=== PATIENT | female | born 1955 | race Caucasian/White ===

== ENCOUNTER → 2018-12-17 09:56 | Outpatient (CLI) | payer OTHER, SELFPAY ==
--- NOTE | 2018-12-17 | DI.MG.S_ITS ---
BILATERAL DIGITAL SCREENING MAMMOGRAM 3D/2D WITH CAD: 12/17/2018 CLINICAL: Routine screening. Comparison is made to exams dated: 05/01/2017 mammogram, 04/10/2016 mammogram, and 03/25/2015 mammogram - [facility]. The tissue of both breasts is heterogeneously dense. This may lower the sensitivity of mammography. Current study was also evaluated with a Computer Aided Detection (CAD) system. There are benign calcifications in both breasts. There are mole markers on both breasts. No significant masses, calcifications, or other findings are seen in either breast. There has been no significant interval change. IMPRESSION: There is no mammographic evidence of malignancy. A 1 year screening mammogram is recommended. This exam was interpreted at Station ID: [id number]. NOTE: For mammograms, a report in lay terms will be sent to the patient. Approximately 15% of breast malignancies will not be visualized mammographically. In the management of a palpable breast mass, a negative mammogram must not discourage biopsy of a clinically suspicious lesion. Electronically Signed By: Wilmer corado/pencortez:12/17/2018 12:23:24 copy to: RACHEL TOURE M.D. letter sent: Normal Exam ACR BI-RADS Category 2: Benign Finding(s) [id number]
== END ==
PROVIDERS: PCP Family Medicine; Visit Provider Family Medicine
DX: Z12.31 Encounter for screening mammogram for malignant neoplasm of breast (principal)
CPT/HCPCS: 77063; 77067

== ENCOUNTER → 2019-01-10 07:48 | Outpatient (CLI) | payer OTHER, SELFPAY | PROVIDERS: PCP Family Medicine; Visit Provider Family Medicine | DX: E78.5 Hyperlipidemia, unspecified (principal); E06.3 Autoimmune thyroiditis ==

== ENCOUNTER → 2019-01-14 07:52 | Outpatient (CLI) | payer OTHER, SELFPAY ==
[2019-01-14 09:09] LABS: Add Manual Diff / Slide Review NO; Basophils Absolute Auto 0 /uL (0-100); Basophils Percent Auto 0.5 % (0-2); Eosinophils Absolute Auto 100 /uL (0-450); Eosinophils Percent Auto 2.3 % (2-4); Hematocrit 38.8 % (36-46); Hemoglobin 13.2 g/dL (12.0-16.0); Lymphocytes Absolute Auto 1900 /uL (1100-4500); Lymphocytes Percent Auto 40.6 % (25-40); Mean Corpuscular Hemoglobin 32.2 PG (26-34); Mean Corpuscular Volume 94.5 fL (80-100); Monocytes Absolute Auto 300 /uL (0-900); Monocytes Percent Auto 5.9 % (3-14); Neutrophils Absolute Auto 2400 /uL (1500-7000); Neutrophils Percent Auto 50.7 % (50-75); Platelet Count 226 X10^3/uL (150-400); Red Blood Cell Count 4.11 X10^6/uL (4.0-5.2); Red Cell Distribution Width 13.4 % (11.6-14.8); White Blood Cell Count 4.7 X10^3/uL (4.5-11.0)
[2019-01-14 09:58] LABS: Alanine Aminotransferase 16 IU/L (9-52); Albumin 4.4 g/dL (3.5-5.0); Albumin Globulin Ratio 1.6 (1.0-2.8); Alkaline Phosphatase 74 U/L (38-126); Aspartate Aminotransferase 18 IU/L (14-36); BUN Creatinine Ratio 21.4 (6-22); Bilirubin Total 0.5 mg/dL (0.2-1.3); Blood Urea Nitrogen 15 mg/dL (7-17); Calcium 9.7 mg/dL (8.4-10.2); Carbon Dioxide 29 mmol/L (22-32); Chloride 102 mmol/L (98-107); Cholesterol 222 mg/dL (140-199); Estimated Glomerular Filt Rate > 60.0 mL/min (>60); Globulin 2.8 g/dL (1.7-4.1); Glucose 96 mg/dL (80-110); HDL Cholesterol 57 mg/dL (40-60); HEMOLYSIS < 15 (0-50); LDL Cholesterol Calculated 133 mg/dL (<100); Potassium 4.1 mmol/L (3.4-5.1); Sodium 140 mmol/L (137-145); Total Protein 7.2 g/dL (6.3-8.2); Triglycerides 161 mg/dL (35-150)
[2019-01-14 10:23] LABS: Thyroid Stimulating Hormone 2.24 uIU/mL (0.47-4.68)
== END ==
PROVIDERS: PCP Family Medicine; Visit Provider Family Medicine
DX: E78.5 Hyperlipidemia, unspecified (principal); E06.3 Autoimmune thyroiditis
CPT/HCPCS: 36415; 80053; 80061; 84443; 85025

== ENCOUNTER → 2020-02-26 10:54 | Outpatient (CLI) | payer OTHER, SELFPAY ==
[2020-02-27 13:16] LABS: Fecal Immunochemical Test Negative (Negative)
== END ==
PROVIDERS: PCP Family Medicine; Referring Provider Family Medicine; Visit Provider Family Medicine
DX: Z12.11 Encounter for screening for malignant neoplasm of colon (principal)
CPT/HCPCS: 82274

== ENCOUNTER → 2020-06-29 09:41 | Outpatient (CLI) | payer OTHER, SELFPAY ==
--- NOTE | 2020-06-29 | DI.MRI.S_ITS ---
PROCEDURE: MR KNEE RT WO CON INDICATIONS: PAIN IN RIGHT KNEE TECHNIQUE: Noncontrast sagittal PD fast spin echo and T2 fast spin echo with fat saturation, sagittal 3-D FLASH with fat saturation; coronal T1 spin echo and PD fast spin echo with fat saturation, and axial PD fast spin echo with fat saturation through the knee. COMPARISON: None. FINDINGS: Image quality: Excellent. Menisci: There is no peripheral displacement of medial meniscus bowing medial collateral ligament. No definite focal medial meniscal tear is seen. There is no evidence of focal lateral meniscal tear. The meniscal root ligaments appear intact. Cruciate ligaments: The anterior and posterior cruciate ligaments appear intact. Medial structures: Low to moderate grade MCL sprain/partial-thickness tear is noted. The posterior oblique ligament, semimembranosus tendon insertions, oblique popliteal ligament, and meniscocapsular junction appear intact. Visualized portions of the pes anserinus tendons appear normal. No abnormal bursal fluid. Lateral structures: The lateral collateral ligament, long and short heads of the biceps femoris tendon appear intact. The popliteus tendon appears normal; the popliteofibular ligament appears intact. The posterosuperior and anteroinferior popliteomeniscal fascicles appear intact. The arcuate and fabellofibular ligaments appear intact, on either side of the lateral inferior geniculate artery. Iliotibial band appears normal. Anterior structures: The quadriceps and patellar tendons appear intact. Patellar alignment is normal. No femoral trochlear dysplasia or ventral trochlear prominence. No edema in the infrapatellar fat pad. Bones and cartilage: No bone marrow contusions or fractures. Mild to moderate tricompartmental osteoarthritis and chondromalacia is seen most prominent in medial femoral tibial compartment with joint space narrowing, subchondral sclerosis and edema and marginal osteophyte formation. Joint space: There is moderate amount of joint fluid is noted. Septated popliteal cyst is seen measures 3 x 2.7 x 5.8 cm in size. Normal appearing synovial plicae are incidentally noted. IMPRESSION: 1. Mild to moderate tricompartmental osteoarthritis and chondromalacia most prominent in medial femoral tibial compartment. Moderate amount of joint fluid and popliteal cyst as above. 2. Degenerative changes involving posterior horn of medial meniscus with peripheral displacement of medial meniscus bowing medial collateral ligament. No definite focal medial meniscal tear. There is no evidence of focal lateral meniscal tear. 3. Low-grade MCL sprain. Cruciate ligaments are intact. Dictated by: Eleazar Mcdonald M.D. on 06/29/2020 at 10:52 Approved by: Eleazar Mcdonald M.D. on 06/29/2020 at 11:05
== END ==
PROVIDERS: PCP Family Medicine; Referring Provider Orthopaedic Surgery; Visit Provider Orthopaedic Surgery
DX: M25.561 Pain in right knee (principal); S83.411A Sprain of medial collateral ligament of right knee, initial encounter; M17.11 Unilateral primary osteoarthritis, right knee; M94.261 Chondromalacia, right knee; M71.21 Synovial cyst of popliteal space [Baker], right knee
CPT/HCPCS: 73721

== ENCOUNTER → 2020-07-07 16:23 | Outpatient (CLI) | payer OTHER, SELFPAY ==
[2020-07-07 16:42] LABS: Bacteria Urine None Seen
[2020-07-07 17:44] LABS: Appearance Urine UA CLEAR; Bilirubin Urine UA NEGATIVE (NEGATIVE); Color Urine UA YELLOW; Glucose Urine UA NEGATIVE (Negative); Ketones Urine UA NEGATIVE (NEGATIVE); Leukocyte Esterase Urine UA 1+ (NEGATIVE); Nitrite Urine UA NEGATIVE (Negative); Occult Blood Urine UA TRACE-INTACT (Negative); Protein Urine UA NEGATIVE (Negative); Specific Gravity Urine UA 1.015 (1.000-1.035); Urobilinogen Urine UA 0.2 E.U./dL (0.2)
[2020-07-07 17:52] LABS: pH Urine UA 6.5 (4.5-8.0)
[2020-07-07 17:56] LABS: Add Manual Diff / Slide Review NO; Basophils Absolute Auto 0 /uL (0-100); Basophils Percent Auto 0.5 % (0-2); Eosinophils Absolute Auto 100 /uL (0-450); Eosinophils Percent Auto 2.3 % (2-4); Hematocrit 38.7 % (36-46); Hemoglobin 12.8 g/dL (12.0-16.0); Lymphocytes Absolute Auto 2600 /uL (1100-4500); Lymphocytes Percent Auto 43.6 % (25-40); Mean Corpuscular Hemoglobin 31.8 PG (26-34); Mean Corpuscular Volume 96.1 fL (80-100); Monocytes Absolute Auto 400 /uL (0-900); Monocytes Percent Auto 6.8 % (3-14); Neutrophils Absolute Auto 2800 /uL (1500-7000); Neutrophils Percent Auto 46.8 % (50-75); Platelet Count 244 X10^3/uL (150-400); Red Blood Cell Count 4.02 X10^6/uL (4.0-5.2); Red Cell Distribution Width 13.5 % (11.6-14.8); White Blood Cell Count 5.9 X10^3/uL (4.5-11.0)
[2020-07-07 18:05] LABS: Culture Indicated Urine Specimen Cultured; RBC Urine 0-1/HPF (0-5/HPF); Squamous Epithelial Cell Urine 0-1 /HPF (0-5/HPF); WBC Urine 1-5/HPF (0-5/HPF)
[2020-07-07 18:23] LABS: Hemoglobin A1C% w Est Avg Glu 5.6 % (4.0-6.0)
[2020-07-07 18:27] LABS: BUN Creatinine Ratio 29.2 (6-22); Blood Urea Nitrogen 21 mg/dL (7-17); Calcium 9.6 mg/dL (8.4-10.2); Carbon Dioxide 30 mmol/L (22-32); Chloride 102 mmol/L (98-107); Estimated Glomerular Filt Rate > 60.0 mL/min (>60); Glucose 104 mg/dL (80-110); HEMOLYSIS < 15 (0-50); Potassium 4.2 mmol/L (3.4-5.1); Sodium 138 mmol/L (137-145)
== END ==
PROVIDERS: PCP Family Medicine; Referring Provider Orthopaedic Surgery; Visit Provider Orthopaedic Surgery
DX: Z01.818 Encounter for other preprocedural examination (principal); Z01.812 Encounter for preprocedural laboratory examination; R73.9 Hyperglycemia, unspecified; N39.0 Urinary tract infection, site not specified
CPT/HCPCS: 36415; 80048; 81001; 83036; 85025; 87077; 87086; 87147; 93005; 93010

== ENCOUNTER → 2020-08-07 11:30 | Outpatient (CLI) | payer OTHER, SELFPAY ==
[2020-08-07 12:19] LABS: COVID19 -Nasal RAPID Negative (Negative)
== END ==
PROVIDERS: PCP Family Medicine; Visit Provider Nurse Practitioner
DX: Z11.59 Encounter for screening for other viral diseases (principal)
CPT/HCPCS: 87635

== ENCOUNTER 2020-08-10 09:09 | Day surgery (SDC) | payer OTHER, SELFPAY ==
[2020-07-27 13:55] VITALS: BMI 28.7
[2020-08-10] VITALS (14 sets, daily range): BP systolic 100–120; BP diastolic 51–73; PULSE 49–83; RESP 8–18; TEMP 35.6–36.9; O2SAT 93–99; BMI 28.7
--- NOTE | 2020-08-10 09:30 | DI.RAD.S_ITS ---
PROCEDURE: XR KNEE RT 1TO2V INDICATIONS: right TKA TECHNIQUE: 2 view(s) of the knee acquired. COMPARISON: [facility], , KNEE 3V RIGHT, 06/22/2013, 15:40. [facility], , KNEE 3V LEFT, 02/18/2009, 12:06. FINDINGS: Bones: Patient is status post knee joint arthroplasty. Hardware components are in expected positions. Visualized bony structures are intact. Soft tissues: Overlying postoperative changes are noted. IMPRESSION: Normal alignment established after right total knee arthroplasty with a surgical drain overlying the suprapatellar bursal space. Dictated by: Dalton Kidd M.D. on 08/10/2020 at 15:16 Approved by: Dalton Kidd M.D. on 08/10/2020 at 15:17
[2020-08-10] MEDS: LACTATED RINGERS 1,000 ML 42 ML IV (09:48)
[2020-08-10] MEDS: PREGABALIN 75 MG CAPSULE PO (09:53)
[2020-08-10] MEDS: ACETAMINOPHEN 325 MG TABLET 975 MG PO (09:53)
[2020-08-10] MEDS: CELECOXIB 200 MG CAPSULE PO (09:54)
[2020-08-10] MEDS: VANCOMYCIN 1,000 MG/200 ML PIGGYBACK 200 MG IV (10:06)
[2020-08-10] MEDS: CEFAZOLIN 2 GM/100 ML FROZ.PIGGY IV ×2 (11:15→19:01)
--- NOTE | 2020-08-10 11:22 | PM.PREOP ---
Pre-operative Note COVID-19 COVID-19 status: Negative Interval Note History & Physical reviewed/Exam performed by Physician: Yes Changes to H&P: No
--- NOTE | 2020-08-10 11:22 | PM.OP.1 ---
Operative Date/Time/Diagnoses Date of procedure: 08/10/20 Time of procedure: 11:59 Pre-op diagnosis: right knee OA Post-op diagnosis: same Procedure & Clinicians Procedure: Right total knee arthroplasty Same procedure as scheduled: Yes Indications: The patient has had progressively worsening right knee pain with radiographic changes consistent with arthritis. Non-operative management has failed and the patient has requested total knee replacement. The risks, benefits and alternatives to surgery were discussed with the patient prior to proceeding. Risks discussed included, but were not limited to, failure to relieve pain, stiffness, infection, nerve damage, deep venous thrombosis, pulmonary embolism, stroke, coma, heart attack, permanent paralysis and , as well as the potential need for eventual revision of the prosthetic. Surgeon: Rachel Mirza Dynamics Ax Solution Architect: Papa Flores Anesthesia Type: General and Spinal Operative Notes Findings: Severe right knee osteoarthritis, good stability, full range of motion Closure Type: primary Specimen(s): none sent Prosthetic devices, grafts, tissues, transplants, or devices: [facility] 2 size 6 femur, size 5 tibia, +9 poly, 35 by 7-1/2 mm patella Applied: drain(s) Estimated Blood Loss (mL): 250 Blood products transfused: none Tourniquet time (min): 85 Procedure in detail: The patient was seen in the pre-operative area, where the patient identified the right knee as the operative site and this was marked with my initials. The patient received pre-operative antibiotics, and was taken to the operating room and placed on the operative table in the supine position. After satisfactory anesthesia, a timekeeping supervisor out was performed. The right leg was encircled with a tourniquet about the proximal thigh, and the leg was prepared from the toes to the tourniquet with ChloroPrep in the usual fashion and draped through sterile drapes. The leg was elevated and exsanguinated with Eschmark bandage and the tourniquet inflated to [250] mmHg pressure. The knee was approached through an approximately 18 cm incision centered over the patella and carried into the knee through a medial parapatellar arthrotomy. A portion of the medial and lateral meniscus was resected. Soft tissue was carefully mobilized around the patella the patella was measured with a caliper. Bone was resected from the patella and the patellar height was reconstituted with up an appropriate sized patellar component. A cover was then placed on the patella. A small amount of additional medial and lateral meniscus was resected. The visionare guide fit well to the distal femur. It looked like an appropriate distal femoral cut and the cut was made without difficulty. The rotation was assessed and the appropriate size femoral guide was placed on the distal femur and finishing cuts were made. There was no evidence of notching. The anterior, posterior and chamfer cuts were then made. The posterior osteophytes and soft tissues were then removed. The posterior capsule was injected with part of a mixture of 60 ml 0.25% Marcaine mixed with 20 ml Exparel for post operative pain control. The remainder of this mixture was injected into the capsule and subcutaneous tissues during cement curing. The tibia was prepared and the visionaire guide fit well to the distal tibia. The rotation was assessed. The patient was placed in extension residual medial and lateral meniscus as well as any residual bone was carefully resected. 2 mm additional tibia was resected. Hemostasis was achieved especially posteriorly. Additional local was injected into the posterior capsule. The extension gap was assessed and additional releases for gap balancing were performed as necessary. It was checked with the gap boat rental clerk. The femoral component was trial was placed and the notch was finished. Trial tibial and femoral components were then placed and the knee placed through a range of motion. Range of motion was [0-130], with good stability throughout the range. The trials were then removed, and the tibia was finished. The bone was prepared with pulsatile lavage, and dried with a sponge. Cement was applied and the final prosthetics placed. Excess cement was removed during and after cement curing. A brief Betadine soak was performed. After confirming there was no extruded cement posteriorly, the final tibial insert was placed. The knee was copiously irrigated and the tourniquet deflated. Hemostasis was obtained with the Bovie cautery. A drain was placed and brought out superolaterally. The capsule was closed with interrupted Vicryl suture. The subcutaneous layer was closed with barbed sutures, and the skin with a running 3-0 V-Lock suture and Surgical glue. An Aquacel Ag dressing was applied and the patient was taken to recovery having tolerated the procedure well. Complications: none Post-operative Condition: stable Disposition: Acute Care Plan for aftercare: The patient will be maintained on a standard total knee replacement protocol with weight bearing as tolerated. The patient will receive aspirin and sequential compression devices for DVT prophylaxis. The patient will be discharged home when safe for the home environment.
--- NOTE | 2020-08-10 11:54 | SUR.OPER ---
Supine on padded OR bed. Pillow under head, arms secured on padded armboards <90 degree abduction. Safety belt across torso. Non-operative leg secured with tape over blanket over lower leg. Operative leg secured in DeMayo/Oneil positioner. Foam padded brace at thigh of operative leg.
[2020-08-10] MEDS: BUPIVACAINE 0.25% W/ EPI 30 ML VIAL 60 ML INJ (12:04)
[2020-08-10] MEDS: BUPIVACAINE LIPOSOME 266 MG/20 ML VIAL INJ (12:05)
[2020-08-10] MEDS: TRANEXAMIC ACID 1,000 MG VIAL 2000 MG INJ ×2 (12:08→13:04)
[2020-08-10] MEDS: SODIUM CHLORIDE IRRIG SOLUTION 250 ML, POVIDONE-IODINE SPONGE STICKS 1 APPLIC IRR (12:15)
[2020-08-10] MEDS: fentaNYL 100 MCG/2 ML INJ IV (13:51)
[2020-08-10] MEDS: hydrOXYzine 50 MG/ML INJ 25 MG IM (14:21)
[2020-08-10] MEDS: OXYCODONE IR 5 MG TABLET PO ×3 (14:22→22:05)
--- NOTE | 2020-08-10 14:40 | SUR.PHASEI ---
1432 to room 203, bed down and locked, call light within reach, Clothing bag, hearing aids, glasses and CPAP to the room. SCDs on. Pt awake, drowsy, oriented, responses appropriate. Stable. No further questions from pt or staff.
[2020-08-10] MEDS: LACTATED RINGERS 1,000 ML 100 ML IV (14:47)
[2020-08-10] MEDS: ACETAMINOPHEN 325 MG TABLET 650 MG PO ×2 (15:26→21:27)
[2020-08-10] MEDS: IBUPROFEN 400 MG TABLET PO ×2 (16:50→21:27)
[2020-08-10] MEDS: OXYCODONE IR 10 MG TABLET PO (19:01)
[2020-08-10] MEDS: ASPIRIN EC 81 MG TABLET PO (21:27)
[2020-08-10] MEDS: DOCUSATE 100 MG CAPSULE PO (21:27)
[2020-08-11] MEDS: IBUPROFEN 400 MG TABLET PO ×4 (01:00→11:19)
[2020-08-11 01:10] VITALS: BP 100/62; PULSE 90; RESP 18; TEMP 36.7; O2SAT 94
[2020-08-11] MEDS: LACTATED RINGERS 1,000 ML 100 ML IV (01:17)
--- NOTE | 2020-08-11 01:24 | PC.NURSE ---
Addendum entered by Angelica Pineda R.N. 08/11/20 04:43: Medicated with 5mg Oxycodone at 0400 for 5/10 right knee pain. Now states pain has not subsided at all so medicated with additional 5mg of Oxycodone (has order for 5-10mg) as well as scheduled Ibuprofen. Original Note: Patient is alert and oriented. [place] and wears bilateral hearing aids. Breath sounds CTA with RA sat of 94%; using home CPAP. HRR. Denies nausea. BT hypoactive and patient denies having passed flatus as yet. Denies dysuria, frequency or urgency with urination. Is able to move self in bed and gets up to bathroom with walker and 1 assist. Aquacel dressing covered with dayana wrap to right knee is CDI; hemovac intact and compressed. CMS is intact bilaterally. States pain only 3/10 so medicated with scheduled Ibuprofen and ice pack applied; is aware she can have additional pain med should pain intensify. Refusing SCD's so reminded to ankle wave when awake. Fall risk score is moderate and bed alarm is activated.
[2020-08-11] MEDS: CEFAZOLIN 2 GM/100 ML FROZ.PIGGY IV (02:57)
[2020-08-11] MEDS: OXYCODONE IR 5 MG TABLET PO ×2 (03:58→04:39)
[2020-08-11 04:19] VITALS: BP 105/53; PULSE 69; RESP 18; TEMP 36.6; O2SAT 96
[2020-08-11 06:54] LABS: Hematocrit 33.9 % (36-46); Hemoglobin 11.3 g/dL (12.0-16.0)
--- NOTE | 2020-08-11 07:34 | PM.PN.1 ---
Subjective Subjective Date Patient Seen: 08/11/20 Time Patient Seen: 07:34 Interval history: She is doing well this morning her pains adequately controlled with oral medications. She has been out of bed with a walker. She denies any nausea. Exam Vital Signs (past 8 hours): - 08/11/20 01:10 08/11/20 04:19 Temperature 98.0 F 97.9 F Pulse Rate 90 69 Respiratory Rate 18 18 Blood Pressure 100/62 105/53 L Pulse Oximetry 94 96 Oxygen Delivery Method CPAP Oxygen Flow Rate 0 Narrative Exam Narrative: Dressings intact and dry. She can do an active straight leg raise. Her calf to soft and she has good early range of motion. Objective Labs Result Diagrams: 08/11/20 06:34 Labs: Laboratory Results - last 24 hr 08/11/20 06:34 Hgb 11.3 L Hct 33.9 L PFSH Medical History Arthritis of right knee Carpal tunnel syndrome on both sides (~2019) Cervical somatic dysfunction Chicken pox (~1958) Chronic pain of left thumb Colon polyps Endometrial cancer (09/2016) Fractures (~2019) Hearing loss Hepatitis (~1960) Knee pain Low back pain Lumbar region somatic dysfunction Measles (~1957) Obstructive sleep apnea of adult (~1983) Osteoarthritis Pelvic somatic dysfunction Primary insomnia (~1983) Recurrent sinusitis Rubella (~1954) Sacral region somatic dysfunction Segmental and somatic dysfunction of upper extremity Sleep apnea Snoring (~1983) Somatic dysfunction of lower extremity ST (skin tag) Stiff neck Thoracic region somatic dysfunction Vertigo Wears glasses Surgical History (Updated 07/27/20 @ 14:13 by Corrie Christopher RN) Anesthesia History of hysterectomy for cancer (09/2016) History of third molar tooth extraction Family History Mother Rheumatoid arthritis Father Cancer Arthritis Grandfather Stroke Grandmother Stroke Grandmother Cancer Social History (Updated 10/31/18 @ 09:38 by JOLENE Coulter) marital status: details: to Bill, lives in [place] number of children: 3 household members: spouse lives independently: Yes caregiver/support person: No housing: house education level: college [employer]/pentecostalism: [employer] Smoking Status: Former smoker quit status: quit date established alcohol intake: current substance use type: does not use during the past year weight has: remained stable well-balanced diet: daily or most days daily servings fruits/ve or more times/day caffeine: Yes eating out: rarely or never Type(s) of exercise: regular exercise frequency: daily duration: 15-30 minutes/day Assessment & Plan Assessment & Plan narrative: Doing well status post right total knee arthroplasty. Plan mobilize out of bed more with physical therapy and discharged to home. Follow up as previously scheduled. Aspirin for DVT prophylaxis. Quality VTE Deep Vein Thrombosis/Pulmonary Embolism Present on Admission: No
[2020-08-11 08:00] VITALS: BP 105/51; PULSE 77; RESP 15; TEMP 36.5; O2SAT 95
[2020-08-11] MEDS: ACETAMINOPHEN 325 MG TABLET 650 MG PO (08:19)
[2020-08-11] MEDS: ASPIRIN EC 81 MG TABLET PO (08:20)
[2020-08-11] MEDS: OXYCODONE IR 10 MG TABLET PO ×2 (08:20→11:19)
[2020-08-11] MEDS: DOCUSATE 100 MG CAPSULE PO (08:21)
--- NOTE | 2020-08-11 12:46 | PT.IIE ---
Current Diagnoses Unilateral primary osteoarthritis, right knee (08/10/20) Surgery Performed Operation Date: 08/10/20 11:15 Actual Procedures p Total Knee Arthroplasty(Right) - Rachel Mirza MD Surgical History (Last Updated 07/27/20 @ 14:13 by Corrie Christopher RN) Anesthesia History of hysterectomy for cancer (09/2016) History of third molar tooth extraction Medical History (Last Reviewed 08/11/20 @ 08:15 by Rachel Mirza MD) Arthritis of right knee Carpal tunnel syndrome on both sides (~2019) Cervical somatic dysfunction Chicken pox (~1958) Chronic pain of left thumb Colon polyps Endometrial cancer (09/2016) Fractures (~2019) Hearing loss Hepatitis (~1960) Knee pain Low back pain Lumbar region somatic dysfunction Measles (~1957) Obstructive sleep apnea of adult (~1983) Osteoarthritis Pelvic somatic dysfunction Primary insomnia (~1983) Recurrent sinusitis Rubella (~1954) Sacral region somatic dysfunction Segmental and somatic dysfunction of upper extremity Sleep apnea Snoring (~1983) Somatic dysfunction of lower extremity ST (skin tag) Stiff neck Thoracic region somatic dysfunction Vertigo Wears glasses Physical Therapy Inpatient Evaluation/Re-Eval M1 PT/OT-IP Prior Functional Status Start: 08/11/20 08:20 Freq: NEEDED Status: Active Protocol: Document 08/11/20 11:11 DE (Rec: 08/11/20 11:34 DE [id number]) Medical Review Prior Functional Status Medical History Reviewed Yes Diet/Fluid Consistency Regular Communication WNL. No deficits noted. Able to make needs known. Mobility and Gait IND for all mobility and amb without AD. Prior to knee pain , there was no limitation. Since knee pain, pt had to limp and was unable to amb more than 45 min d/t increased pain. Activities of Daily Living and IADL's IND for all ADLs and IADLs including driving at baseline. Prior Functional Level (Other details) Hx of L ankle fracture in Sep 2019. Social History Household Members spouse Living Arrangements House Number of Floors (Floors) 3 or More Floors Number of Stairs To Enter/Railing? 0 STARLA. 2 steps with B railing from main level to upstairs. Pt will stay on main level and upstairs. Home Environment Standard Height Toilet,High Toilet,Tub/Shower Home Equipment Front Wheel Walker,Straight Cane,Crutches,Manual Wheelchair,Raised Toilet Seat Without Armrests,Shower Seat without Backrest,Hand Held Shower,Grab Bars In Shower Employment Status Retired Additional Social History Comment Pt lives with spouse who will be available full-time to assist at home. M2 PT-IP Current Condition Start: 08/11/20 08:20 Freq: NEEDED Status: Active Protocol: Document 08/11/20 11:11 DE (Rec: 08/11/20 11:34 DE [id number]) Physical Therapy Current Condition Current Condition Evaluation Date 08/11/20 Treatment Diagnosis R TKA; Difficulty in walking. Onset Date 08/10/20 Weight Bearing Status Weight Bearing Status Weight Bear as Tolerated M3 PT-IP Subjective Start: 08/11/20 08:20 Freq: NEEDED Status: Active Protocol: Document 08/11/20 11:11 DE (Rec: 08/11/20 11:34 DE [id number]) Subjective Physical Therapy Visit Type Type Initial Evaluation Visit Start Time 08:48 Visit Stop Time 09:25 Total Visit Minutes 37 Notes SPT Domenico led session under direct supervision of PT Manny. Number of MACHINIST HELPER Visits 0 Physical Therapy Visit Comments Patient Comments Pt is agreeable to do PT. M4 PT-IP Mobility and Gait Start: 08/11/20 08:20 Freq: NEEDED Status: Active Protocol: Document 08/11/20 11:11 DE (Rec: 08/11/20 11:34 DE [id number]) PT-Bed Mobility Assessment Supine to Sit Supine to Sit Standby Assistance,Head of Bed Elevated Sit to Supine Sit to Supine Standby Assistance,Head of Bed Elevated Scooting Scooting to Edge of Bed Standby Assistance PT-Transfer Assessment Sit to and From Stand Sit to and from Stand Contact Guard Assistance,Use of Upper Extremities Equipment Transfer Assistive Device Gait Belt,Front Wheeled Walker Orthotic/Prosthetic Devices or Brace: No Transfers Transfer Destination Bed Transfer Technique Amb with FWW Transfer Ability Level of Assist Contact Guard Assistance Comments Mobility Comments Pt was lying supine in bed with elevated HOB upon arrival . Pt completed supine to sit at R side EOB with SBA, elevated HOB, and use of BUE. Pt then performed sit to stand with CGA FWW in a staggered stance placing R foot forward. In standing, pt was able to tolerate WB on RLE. Pt then amb ~180 ft total in the hallway, to the stairs, and back to the room with SBA FWW. Pt demonstrated step-through pattern with decreased feet clearance and decreased gait speed. Pt also demonstrated lack of R knee extension during stance phase. Cueing was provided to keep the R knee straight during gait. Pt performed 3 steps up and down x2 with CGA and B railing. Pt used step-to pattern. No LOB noted throughout amb and stair climbing. Pt amb back to the room and went to supine in bed with SBA. Pt performed R knee ROM exercises in bed and was educated on the importance of knee ROM. Call light placed within reach. Gait Assessment Gait Gait Assistance Required: Standby Assistance Distance (Feet) 180 Able to Maintain Weight Bearing Status Yes During Gait Assistive Devices Assistive Device Gait Belt,Front Wheeled Walker Orthotic/Prosthetic Devices or Brace: No Gait Deviations General Gait Pattern Decreased Stride Length, Decreased Feet Clearance Factors Limiting Gait Function Factors Limiting Gait Function Decreased Activity Tolerance, Decreased Strength,Limited Range of Motion,Pain,Poor Balance Comments Gait Comments See mobility comments. Stair Climbing Assessment Evaluation Level of Assist On Stairs Contact Guard Assistance Devices Stair Climbing Assistive Devices Left Railing,Right Railing Technique/Endurance Stair Climbing Direction Ascend and Descend Stair Climbing Technique Step to Step Number of Steps Climbed 3 Query Text: Stair Climbing Set # Repetitions (reps) 2 Comments Stair Climbing Comments See mobility comments. PT-Balance Assessment Sitting Balance and Reactions Static Sitting Balance Ability Normal Dynamic Sitting Balance Ability Normal Standing Balance and Reactions Static Standing Balance Ability Normal Dynamic Standing Balance Ability Good M5 PT-IP Objective Assessments Start: 08/11/20 08:20 Freq: NEEDED Status: Active Protocol: Document 08/11/20 11:11 DE (Rec: 08/11/20 11:34 DE [id number]) Orientation Orientation/Cognition Level of Alertness Alert Orientation Name,Age,Birthday,Month,Date, Year,Day of Week,Place, Situation Language Function Ability No Deficits Noted Safety Awareness Understands Safety Issues Memory Description No Deficits Noted Gross Range of Motion Lower Extremity ROM Assessment Right Impaired Strength Lower Extremity Strength Assessment Right Impaired Knee ~5-110 deg Coordination Assessment Gross Coordination Gross Coordination WNL Sensation Assessment Sensation Gross Sensation WNL Light Touch Intact Muscle Tone Muscle Tone WNL Yes M6 PT-IP Treatment Start: 08/11/20 08:20 Freq: NEEDED Status: Active Protocol: Document 08/11/20 11:11 DE (Rec: 08/11/20 11:34 DE [id number]) Physical Therapy Treatment Exercises Exercises Ankle Pumps,Gluteal Sets,Quad Sets,Heel Slides Education Education Provided Weight Bearing Status,Post-Op Packet,Safety M7 PT-IP Assessment and Plan Start: 08/11/20 08:20 Freq: NEEDED Status: Active Protocol: Document 08/11/20 11:11 DE (Rec: 08/11/20 11:34 DE [id number]) PT Summary Assessment and Plan Potential Rehabilitation Potential Excellent Status of Condition at Evaluation Stable Summary Impairments Pain,ROM,Strength,Balance,Bed Mobility,Transfers,Gait, Activity Tolerance Progress Towards Goals Safe For Discharge Assessment Summary Dilcia is a 64 yo female POD1 s /p R TKA. At baseline, pt was IND for all mobility, amb, and ADLs without AD. Pt was unable to amb more than 45 min d/t increased knee pain but had no limitations prior to knee pain. On evaluation, pt required CGA-SBA for all mobility, transfers, amb, and stair climbing. Pt did not demonstrate any unsteadiness or LOB. PT anticipates pt will be safe to d/c home with assistance and FWW. Pt will benefit from outpatient PT to improve knee ROM and strength. Frequency of Treatment Frequency Of Treatment Discharge Recommendations To Nursing Amount of Assist Needed Standby Assistance Discharge Recommendations PT Discharge Recommendations Home with Assistance, Outpatient PT Transportation Needs at Discharge Private Vehicle This session was led by Janice Lehman and supervised by ANA MARIA Swan. This note has been reviewed and approved by ANA MARIA Swan
--- NOTE | 2020-08-11 12:53 | PC.NURSE ---
Discharge: Feels ready to d/c home. Seen by PT and given there final instructions. Seen by MD and given final instructions. Hemovac removed intact and sm dressing applied. Discussed wound care, leave aquacel in place. Tolerates diet w/out problems. Vds w/out diff. Reviewed d/c packet. Given Rx for pain med. Questions answered. Pt d/c home via auto w/spouse.
== END 2020-08-11 11:40 | disposition home or self-care (01) ==
LOC: OR 11:03 → AC 11:52
PROVIDERS: PCP Family Medicine; Referring Provider Internal Medicine; Visit Provider Orthopaedic Surgery
PROC: 0SRC0JZ Replacement of Right Knee Joint with Synthetic Substitute, Open Approach (ICD-10-PCS; CPT 27447; principal; 2020-08-10 11:15)
DX: M17.11 Unilateral primary osteoarthritis, right knee (principal); G47.33 Obstructive sleep apnea (adult) (pediatric)
CPT/HCPCS: 27447; 36415; 73560; 85014; 85018; 97161; C1776; C9290; J0690; J1100; J2250; J2405; J2704; J3010; J3410

== ENCOUNTER → 2020-12-15 11:24 | Outpatient (CLI) | payer OTHER, SELFPAY ==
[2020-08-10 14:51] VITALS: BMI 28.7
--- NOTE | 2020-12-15 | DI.MG.S_ITS ---
BILATERAL DIGITAL SCREENING MAMMOGRAM 3D/2D WITH CAD: 12/15/2020 CLINICAL: Routine screening. Comparison is made to exams dated: 12/17/2018 mammogram, 05/01/2017 mammogram, and 04/10/2016 mammogram - [facility]. The tissue of both breasts is extremely dense, which lowers the sensitivity of mammography. Current study was also evaluated with a Computer Aided Detection (CAD) system. There are benign calcifications in both breasts. There are mole markers on both breasts. No significant masses, calcifications, or other findings are seen in either breast. There has been no significant interval change. IMPRESSION: BENIGN There is no mammographic evidence of malignancy. A 1 year screening mammogram is recommended. This exam was interpreted at Station ID: [id number]. NOTE: For mammograms, a report in lay terms will be sent to the patient. Approximately 15% of breast malignancies will not be visualized mammographically. In the management of a palpable breast mass, a negative mammogram must not discourage biopsy of a clinically suspicious lesion. Electronically Signed By: Domenico nunez/ghanshyam:12/15/2020 13:26:29 letter sent: Normal Exam ACR BI-RADS Category 2: Benign Finding(s) 3342F
== END ==
PROVIDERS: PCP Family Medicine; Referring Provider Family Medicine; Visit Provider Family Medicine
DX: Z12.31 Encounter for screening mammogram for malignant neoplasm of breast (principal)
CPT/HCPCS: 77063; 77067

== ENCOUNTER → 2021-05-03 12:55 | Outpatient (CLI) | payer OTHER, SELFPAY ==
[2020-08-10 14:51] VITALS: BMI 28.7
--- NOTE | 2021-05-03 12:56 | DI.RAD.S_ITS ---
PROCEDURE: XR HIP W PEL IF DONE KAT MIN 4V INDICATIONS: buttock pain TECHNIQUE: AP pelvis with lateral view(s) of the bilateral hip(s). COMPARISON: None. FINDINGS: Bones: No fractures or dislocations. Pelvic ring appears intact. No suspicious bony lesions. Mild joint space narrowing and periarticular osteophyte formation at the bilateral hip joints. Soft tissues: The visualized bowel gas pattern is normal. No suspicious soft tissue calcifications. IMPRESSION: Bilateral hip osteoarthritis. No acute fracture. No osseous lesion. If symptoms and/or clinical suspicion for pathology persist, further assessment with repeat, or advanced imaging (e.g., CT, MRI, or bone scan) may be helpful for further assessment. Dictated by: Bryant Spivey M.D. on 05/03/2021 at 14:01 Approved by: Bryant Spivey M.D. on 05/03/2021 at 14:02
== END ==
PROVIDERS: PCP Family Medicine; Referring Provider Family Medicine; Visit Provider Family Medicine
DX: M54.5 Low back pain (principal); M16.0 Bilateral primary osteoarthritis of hip; G89.29 Other chronic pain
CPT/HCPCS: 73522

== ENCOUNTER 2021-05-09 05:38 | Emergency (ER) | payer OTHER, SELFPAY ==
[2020-08-10 14:51] VITALS: BMI 28.7
[2021-05-09 05:52] VITALS: BP 152/87; PULSE 74; RESP 17; TEMP 36.7; O2SAT 98; BMI 28.8
--- NOTE | 2021-05-09 06:02 | ED.BACK ---
HPI - Back Pain/Injury <Carlo oBwie DO - Last Filed: 05/12/21 03:49> General Chief Complaint: Back Pain/Injury Stated Complaint: cramp/pain in left buttock on and off 3 weeks Time Seen by Provider: 05/09/21 05:44 Source: patient Limitations: no limitations History of Present Illness HPI Narrative: 65-year-old female Former smoker with multiple orthopedic and somatic diagnoses presents with a chief complaint of gradually worsening left lumbar and buttock pain for the past 3 weeks. She states that it seemed to be triggered by lifting heavy object and has been gradually worsening. She has had pain radiating down her left leg and also complains of numbness and tingling. Her left leg has been weak and she has stumbled a nearly fallen on multiple occasions. She denies any loss of control of bowel or bladder. She has had no fever or chills. She denies the use of blood thinners. Related Data Home Medications Medication Instructions Recorded Confirmed azelastine 137 mcg (0.1 %) nasal 1 spray NASAL BID PRN 07/27/20 05/05/21 spray aerosol Resmed Dreamstation CPAP #1 ea 05/05/21 ibuprofen 400 mg tablet 400 mg PO Q4HR PRN tab 05/05/21 Previous Rx's Medication Instructions Recorded cyclobenzaprine 10 mg tablet 10 mg PO TID PRN #30 tab 05/05/21 gabapentin 300 mg capsule 300 mg PO BEDTIME #30 cap 05/09/21 prednisone 20 mg tablet 40 mg PO DAILY #8 tab 05/09/21 Allergies Allergy/AdvReac Type Severity Reaction Status Date / Time Androgenic Anabolic Steroid AdvReac Mild Insomnia Verified 05/05/21 14:24 cortisone AdvReac Mild insomnia Verified 05/05/21 14:24 Review of Systems <Carlo Bowie DO - Last Filed: 05/12/21 03:49> Review of Systems Narrative: GENERAL: Denies chills, fatigue, malaise, fever, sweats. HEENT: Denies sinus pain, ear pain, sore throat, difficulty swallowing, dizziness. RESPIRATORY: Denies dyspnea, cough, wheezing, hemoptysis, sputum. CARDIOVASCULAR: Denies chest pain, palpitations, orthopnea, edema, GASTROINTESTINAL: Denies nausea, vomiting, abdominal pain, diarrhea, constipation, melena. : Denies dysuria, frequency, incontinence, hematuria, urinary retention. MUSCULOSKELETAL: See HPI SKIN: Denies rash, skin lesions, or other NEUROLOGIC: See HPI PSYCHIATRIC: No concerning psychosocial issues. 12 point review of systems is negative except for those stated above Patient History <Carlo Bowie DO - Last Filed: 05/12/21 03:49> Medical History Arthritis of right knee Carpal tunnel syndrome on both sides (~2019) Cervical somatic dysfunction Chicken pox (~1958) Chronic pain of left thumb Colon polyps Endometrial cancer (09/2016) Fractures (~2019) Hearing loss Hepatitis (~1960) Knee pain Left buttock pain Low back pain Lumbar region somatic dysfunction Measles (~1957) Multiple nevi Obstructive sleep apnea of adult (~1983) Osteoarthritis Pelvic somatic dysfunction Piriformis syndrome of right side Primary insomnia (~1983) Recurrent sinusitis Rubella (~1954) Sacral region somatic dysfunction Segmental and somatic dysfunction of abdomen and other regions Segmental and somatic dysfunction of upper extremity Sleep apnea Snoring (~1983) Somatic dysfunction of lower extremity ST (skin tag) Stiff neck Thoracic region somatic dysfunction Vertigo Wears glasses Surgical History Anesthesia History of hysterectomy for cancer (09/2016) History of third molar tooth extraction Family History Mother Rheumatoid arthritis Father Cancer Arthritis Grandfather Stroke Grandmother Stroke Grandmother Cancer Social History marital status: details: navarro Whelan, lives in [place] number of children: 3 household members: spouse lives independently: Yes caregiver/support person: No housing: house education level: college [employer]/tenriism: Roman Catholic Reformed Smoking Status: Former smoker quit status: quit date established alcohol intake: current substance use type: does not use during the past year weight has: remained stable well-balanced diet: daily or most days daily servings fruits/ve or more times/day caffeine: Yes eating out: rarely or never Type(s) of exercise: regular exercise frequency: daily duration: 15-30 minutes/day Smoking Status: Former smoker alcohol intake frequency: holidays/special occasions only Substance Use Type: does not use Exam <DO Annia Rubalcava Last Filed: 05/12/21 03:49> Narrative Exam Narrative: GENERAL: [65] year old patient appears stated age. Well-developed patient, in mild distress. HEAD: Atraumatic. Normocephalic. EYES: Pupils equal round and reactive. Extraocular motions intact. No scleral icterus. No injection or drainage. ENT: Nose without bleeding, purulent drainage. Throat without erythema, tonsillar hypertrophy or exudate. Airway patent. NECK: Trachea midline. Non tender CARDIOVASCULAR: Regular rate and rhythm without murmurs, gallops, or rubs. RESPIRATORY: Clear to auscultation. Breath sounds equal bilaterally. No wheezes, rales, or rhonchi. GASTROINTESTINAL: Abdomen soft, non-tender, nondistended. EXTREMITIES: No edema or joint tenderness. BACK: Left lower lumbar region with some tenderness to palpation. No saddle anesthesia. Left lower extremity with a measurable weakness (4/5). Right patellar reflex 2+, left patellar reflex 1+. NEURO: AOx3. SKIN: No rash or erythema of visible areas Initial Vital Signs Initial Vital Signs: Vital Signs Temperature 98.1 F 05/09/21 05:52 Pulse Rate 74 05/09/21 05:52 Respiratory Rate 17 05/09/21 05:52 Blood Pressure 152/87 H 05/09/21 05:52 Pulse Oximetry 98 05/09/21 05:52 <Amparo Sena DO - Last Filed: 05/09/21 14:46> Initial Vital Signs Initial Vital Signs: Vital Signs Temperature 98.1 F 05/09/21 05:52 Pulse Rate 74 05/09/21 05:52 Respiratory Rate 17 05/09/21 05:52 Blood Pressure 152/87 H 05/09/21 05:52 Pulse Oximetry 98 05/09/21 05:52 Course <DO Annia Rubalcava Last Filed: 05/12/21 03:49> Orders Ordered: Discontinued Medications Gabapentin (Gabapentin 300 Mg Capsule) 300 mg PO NOW ONE Stop: 05/09/21 06:03 Last Admin: 05/09/21 06:12 Dose: 300 mg Documented by: SHASHA Ketorolac Tromethamine (Ketorolac 30 Mg/Ml Vial) 30 mg IM NOW ONE Stop: 05/09/21 06:03 Last Admin: 05/09/21 06:11 Dose: 30 mg Documented by: SHASHA Prednisone (Prednisone 20 Mg Tablet) 40 mg PO NOW ONE Stop: 05/09/21 06:03 Last Admin: 05/09/21 06:12 Dose: 40 mg Documented by: SHASHA Vital Signs Vital signs: Vital Signs - 8 hr 05/09/21 08:32 05/09/21 09:15 Pulse Rate 73 80 Respiratory Rate 16 16 Blood Pressure 135/71 134/77 Pulse Oximetry 98 98 <Amparo Sena DO - Last Filed: 05/09/21 14:46> Orders Ordered: Discontinued Medications Gabapentin (Gabapentin 300 Mg Capsule) 300 mg PO NOW ONE Stop: 05/09/21 06:03 Last Admin: 05/09/21 06:12 Dose: 300 mg Documented by: SHASHA Ketorolac Tromethamine (Ketorolac 30 Mg/Ml Vial) 30 mg IM NOW ONE Stop: 05/09/21 06:03 Last Admin: 05/09/21 06:11 Dose: 30 mg Documented by: SHASHA Prednisone (Prednisone 20 Mg Tablet) 40 mg PO NOW ONE Stop: 05/09/21 06:03 Last Admin: 05/09/21 06:12 Dose: 40 mg Documented by: SHASHA Vital Signs Vital signs: Vital Signs - 8 hr 05/09/21 08:32 05/09/21 09:15 Pulse Rate 73 80 Respiratory Rate 16 16 Blood Pressure 135/71 134/77 Pulse Oximetry 98 98 <Amparo Sena DO - Last Filed: 05/09/21 14:46> Imaging Data MR lumbar: Radiologist's Impression: PROCEDURE: MR LUMBAR SPINE WO CON INDICATIONS: pain, left leg weakness, decreased reflex TECHNIQUE: Noncontrast sagittal T1 spin echo and T2 fast echo, sagittal STIR, axial T1 and T2 fast spin echo through the lumbar spine. In cases with scoliosis, additional coronal T2 fast spin echo may be performed. COMPARISON: None. FINDINGS: Image quality: Excellent. Alignment and Curvature: There is normal bony alignment. Bone Marrow: No acute fracture. Multilevel degenerative endplate sclerosis and spurring. Diffuse facet arthropathy. Spinal Cord: Conus medullaris terminates at the L2 level. Visualized cord demonstrates normal signal and size. Paraspinous Soft Tissues: No paravertebral masses. 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 T12-L1: Normal appearance. L1-L2: Normal appearance. L2-L3: No canal stenosis. Mild bilateral foraminal narrowing. L3-L4: Minimal canal narrowing. Partial effacement of both lateral recesses with bilaterally symmetric appearance. Mild right foraminal narrowing. No definite left foraminal stenosis. L4-L5: Minimal central canal narrowing. There is left paracentral disc material suggestive of sequestration at the level of the mid L4 vertebral body, with associated mild left-sided canal narrowing. There is possible impingement of the descending left L4 nerve root. Partial effacement of both lateral recesses with bilaterally symmetric appearance. Mild right foraminal stenosis. Moderate left foraminal narrowing with slight nerve root compression. L5-S1: No canal narrowing. Mild left foraminal stenosis. No right foraminal narrowing. IMPRESSION: Left paracentral disc sequestration at the mid L4 level with possible associated impingement of the descending left L4 nerve root . Recommend correlation to clinical exam findings. No high-grade canal narrowing. Moderate left L4-L5 foraminal stenosis as above. Dictated by: Francois Patel M.D. on 05/09/2021 at 8:15 MDM Narrative Medical decision making narrative: I received sign-out from Dr. Bowie at seen evaluated patient myself. Her pain is much better controlled. She is ambulatory in the emergency department to the bathroom multiple times. Is complaining of left leg weakness. MRI confirms an L4 nerve root impingement with disc sequestration. At this time no high-grade canal narrowing. No need for any emergent consultation. At this time patient has follow-up appointment this week with Orthopedics in regard to her knee. She also has up appointment with her PCP next week. Patient would like to try other modalities before having surgery which at this time I feel is appropriate. Will give her prescription for gabapentin to go home with. Discharge Plan Departure Patient Disposition: Home Clinical Impression: L4-L5 disc bulge, Injury of spinal nerve root at L4 level Instructions: Herniated Disc Activity Restrictions/Additional Instructions: *You have been diagnosed with disc herniation at L4 *What to do: You have a nerve impingement on the level below for. This is likely causing your leg weakness. You should follow-up with orthopedics and her primary care provider. Physical therapy and other modalities may be tried. *Continue to take medications as directed-->SENT TO [facility] [place] Gabapentin 300 mg at night, this can be titrated up but please discuss with a provider before doing Prednisone 40 mg once a day for 4 days, start tomorrow Tylenol 1000 mg every 6 hours if needed for [id number] pain do not exceed more than 4000 mg in 1 day *Follow up with your primary care provider in 2-3 days *Return to ER if you should have increasing leg weakness loss of urine or stool, increasing pain or any new, worsening or concerning symptoms Prescriptions: New prednisone 20 mg tablet 40 mg PO DAILY Qty: 8 RF: 0 gabapentin 300 mg capsule 300 mg PO BEDTIME Qty: 30 RF: 0 No Action ibuprofen 400 mg tablet 400 mg PO Q4HR PRN (Reason: pain) RF: 0 cyclobenzaprine 10 mg tablet 10 mg PO TID PRN (Reason: muscle spasm) Qty: 30 RF: 1 azelastine 137 mcg (0.1 %) aerosol,spray 1 spray NASAL BID PRN (Reason: Seasonal allergies) RF: 0 (DME) Resmed Dreamstation CPAP Qty: 1 RF: 0 Referrals: Rachel Mirza MD [Physician] - Cliff Mcgregor DO [Primary Care Provider] -
[2021-05-09] MEDS: KETOROLAC 30 MG/ML VIAL IM (06:11)
[2021-05-09] MEDS: GABAPENTIN 300 MG CAPSULE PO (06:12)
[2021-05-09] MEDS: predniSONE 20 MG TABLET 40 MG PO (06:12)
--- NOTE | 2021-05-09 08:24 | PC.NURSE ---
Lower back no visible lesion, deformity, discoloration or swelling noted.
[2021-05-09 08:32] VITALS: BP 135/71; PULSE 73; RESP 16; O2SAT 98
--- NOTE | 2021-05-09 08:54 | PC.NURSE ---
Pt ambulates with independent, steady gait to restroom. States that her pain is much improved, though not entirely resolved.
[2021-05-09 09:15] VITALS: BP 134/77; PULSE 80; RESP 16; O2SAT 98
== END 2021-05-09 09:16 | disposition home or self-care (01) ==
PROVIDERS: Emergency Provider Emergency Medicine; PCP Family Medicine
DX: M51.26 Other intervertebral disc displacement, lumbar region (principal); S34.21XA Injury of nerve root of lumbar spine, initial encounter; R53.1 Weakness; X50.0XXA Overexertion from strenuous movement or load, initial encounter
CPT/HCPCS: 72148; 96372; 99283; 99284; J1885

== ENCOUNTER → 2021-06-09 10:07 | Outpatient (CLI) | payer OTHER, SELFPAY ==
[2020-08-10 14:51] VITALS: BMI 28.7
[2021-06-10 15:08] LABS: Fecal Immunochemical Test Negative (Negative)
== END ==
PROVIDERS: PCP Family Medicine; Referring Provider Family Medicine; Visit Provider Family Medicine
DX: Z12.11 Encounter for screening for malignant neoplasm of colon (principal)
CPT/HCPCS: 82274

== ENCOUNTER → 2022-03-30 14:30 | Outpatient (CLI) | payer OTHER, SELFPAY ==
[2022-01-18 16:40] VITALS: BMI 28.7
--- NOTE | 2022-03-30 14:31 | DI.MG.S_ITS ---
BILATERAL DIGITAL SCREENING MAMMOGRAM 3D/2D WITH CAD: 03/30/2022 CLINICAL: Routine screening. Comparison is made to exams dated: 12/15/2020 mammogram, 12/17/2018 mammogram, and 05/01/2017 mammogram - [facility]. The tissue of both breasts is extremely dense, which lowers the sensitivity of mammography. Current study was also evaluated with a Computer Aided Detection (CAD) system. There are benign calcifications in both breasts. There are mole markers on both breasts. No significant masses, calcifications, or other findings are seen in either breast. There has been no significant interval change. IMPRESSION: BENIGN There is no mammographic evidence of malignancy. A 1 year screening mammogram is recommended. Based on the Tyrer Cuzick model (a risk assessment model) the patient's lifetime risk is 12.6% and her 10 year risk is 7.1%. According to the ACR, ACS, and NCCN guidelines, an annual breast MRI exam along with mammogram is recommended if the patient's lifetime risk is 20% or greater. This exam was interpreted at Station ID: [id number]. NOTE: For mammograms, a report in lay terms will be sent to the patient. Approximately 15% of breast malignancies will not be visualized mammographically. In the management of a palpable breast mass, a negative mammogram must not discourage biopsy of a clinically suspicious lesion. Electronically Signed By: Jarred gaytan/ghanshyam:03/30/2022 16:42:44 letter sent: Normal Exam ACR BI-RADS Category 2: Benign Finding(s) 3342F
== END ==
PROVIDERS: PCP Family Medicine; Referring Provider Family Medicine; Visit Provider Family Medicine
DX: Z12.31 Encounter for screening mammogram for malignant neoplasm of breast (principal)
CPT/HCPCS: 77063; 77067

== ENCOUNTER → 2022-04-17 13:43 | Outpatient (CLI) | payer OTHER, SELFPAY ==
[2022-01-18 16:40] VITALS: BMI 28.7
--- NOTE | 2022-04-17 13:52 | DIET.CONS ---
Dietary Consultation Note Assessment: 66y healthy woman here for help with weight management (1 of 6 visits approved by [place] [facility]). Pt above her preferred weight with LANCE desires shelter plan to support healthy weight without yoyo diet. Ht: 5'9 Wt: 205# BMI: 28.7 Goal Body Weight: 175-185# easily nauseated especially with high fat intake, easy indigestion doesn't like nutrition bars or protein shakes, no smoothies Usual Day: wakes up at 6-7:30am, well rested delmy now that uses CPAP Breakfast: 1 pot black tea c bit sugar, used to be soft boiled egg, piece toast c cheese, cracker c jam, fresh fruit OR 1/4 cup oats c blueberry, banana, seeds-like pumpkin seeds and nuts also tbs half and half midmorning: latte c 2% lactose free milk c ugo cracker or homemade oat cookie and small piece dark chocolate Lunch (most difficult, doesn't want to stop but can't make it to dinner): similar to dinner- potatoes, legumes- probiotic veggies, or big salad with protein, or sometimes cooked veggies. Dinner (530pm): zucchini and onions cooked, gonzalez peppers, carrots, celery, quinoa, potatoes, brown rice, salmon, chicken- eats separately from spouse, eat different times. occasionally apple as evening snack drinks filtered water during the day no etoh consumption during the week. 10-10:30pm bedtime. does walking loop [address] 4[place]w, no strength training Pt with symptoms of GERD: raw onions and garlic, fatty foods, eating too big, eating too late, no carbonation tolerance. RD Impression: Pts diet overall healthy and unrefined. Pt with high kcal potentially high sugar midmorning snack. Pt trying to eat on schedule rather than listening to hunger cues potentially leading to overconsumption of kcals in a day. Pt would benefit from regular strength training. Pt would benefit from Table Tilt test to assess for GERD secondary to symptoms reported. Nutrition Diagnosis: overweight r/t undesirable meal timing aeb pt with BMI 30, pt eating on schedule rather than listening to hunger cues. Interventions: 1. Introduced pt to hunger scale as intuitive eating tool. Pt instructed to plan meals and snacks to occur when a 3 and stop when an 8. 2. Introduced pt to cardiometabolic food plan, protein content of vegetarian foods, and fiber content of foods handout. Pt instructed to log several days worth of food and compare with food plan to identify if any skewed intake. EER: 1800kcals, 21g fiber, 90g protein Monitoring/Evaluations: f/u in 2w to continue teaching and monitoring. Electronically Signed by: Alina Hinds 04/17/22 13:53 Clinical Dietitian [address] [id number]
[2022-04-17 14:14] VITALS: BMI 30.2
== END ==
PROVIDERS: PCP Family Medicine; Referring Provider Family Medicine; Visit Provider Family Medicine
DX: E66.3 Overweight (principal); Z71.3 Dietary counseling and surveillance; Z68.28 Body mass index [BMI] 28.0-28.9, adult
CPT/HCPCS: 97802

== ENCOUNTER → 2022-04-28 08:37 | Outpatient (CLI) | payer OTHER, SELFPAY ==
[2022-01-18 16:40] VITALS: BMI 28.7
[2022-04-28 10:14] LABS: Add Manual Diff / Slide Review NO; Basophils Absolute Auto 0 /uL (0-100); Basophils Percent Auto 0.8 % (0-2); Eosinophils Absolute Auto 100 /uL (0-450); Eosinophils Percent Auto 3.1 % (2-4); Hematocrit 37.8 % (36-46); Lymphocytes Absolute Auto 1900 /uL (1100-4500); Lymphocytes Percent Auto 43.9 % (25-40); Mean Corpuscular HGB Conc 34.4 % (30-36); Mean Corpuscular Hemoglobin 32.3 PG (26-34); Mean Corpuscular Volume 93.9 fL (80-100); Monocytes Absolute Auto 300 /uL (0-900); Monocytes Percent Auto 7.4 % (3-14); Neutrophils Absolute Auto 1900 /uL (1500-7000); Neutrophils Percent Auto 44.8 % (50-75); Platelet Count 236 X10^3/uL (150-400); Red Blood Cell Count 4.02 X10^6/uL (4.0-5.2); Red Cell Distribution Width 13.7 % (11.6-14.8); White Blood Cell Count 4.2 X10^3/uL (4.5-11.0)
[2022-04-28 10:40] LABS: Alanine Aminotransferase 14 IU/L (<35); Albumin 4.1 g/dL (3.5-5.0); Albumin Globulin Ratio 1.6 (1.0-2.8); Alkaline Phosphatase 71 U/L (38-126); Aspartate Aminotransferase 20 IU/L (14-36); BUN Creatinine Ratio 21.6 (6-22); Bilirubin Total 0.4 mg/dL (0.2-1.3); Blood Urea Nitrogen 16 mg/dL (7-17); Calcium 9.4 mg/dL (8.4-10.2); Carbon Dioxide 30 mmol/L (22-32); Chloride 103 mmol/L (98-107); Cholesterol 224 mg/dL (140-199); Estimated Glomerular Filt Rate > 60 mL/min (>60); Globulin 2.6 g/dL (1.7-4.1); Glucose 95 mg/dL (80-110); HDL Cholesterol 53 mg/dL (40-60); HEMOLYSIS < 15 (0-50); LDL Cholesterol Calculated 138 mg/dL (<100); Potassium 4.3 mmol/L (3.4-5.1); Sodium 139 mmol/L (137-145); Total Protein 6.7 g/dL (6.3-8.2); Triglycerides 166 mg/dL (35-150)
[2022-04-28 11:00] LABS: Free T3, Triiodothyronine Free 3.11 pg/mL (2.77-5.27); Free T4, Direct Thyroxine 0.93 ng/dL (0.78-2.19)
[2022-04-28 11:13] LABS: Thyroid Stimulating Hormone 1.98 uIU/mL (0.47-4.68)
== END ==
PROVIDERS: PCP Family Medicine; Referring Provider Family Medicine; Visit Provider Family Medicine
DX: E03.9 Hypothyroidism, unspecified (principal); E78.5 Hyperlipidemia, unspecified
CPT/HCPCS: 36415; 80053; 80061; 84439; 84443; 84481; 85025

== ENCOUNTER → 2022-05-01 14:00 | Outpatient (CLI) | payer OTHER, SELFPAY ==
[2022-01-18 16:40] VITALS: BMI 28.7
--- NOTE | 2022-05-01 17:11 | DIET.OUTPTC ---
Dietary Outpatient Consultation Note Consultation Date: 05/01/[address] 66[address] f/u for help with longterm weight management. Pt recently started medication for high blood pressure which is new for her. Latest labs came back with hyperlipidemia (TC >230, LDL >130), pt has been on statin in past and open to restarting to reduce risk of HLD. Pt lost 2# in 2w after our first meeting (current weight 203#). Pt successful so far with several interventions from meetin. Pt strength training twice per week using [email or web address]. All videos are <30 minutes and geared toward seniors. Pt loving this and feels the benefits already. 2. Pt using hunger scale to identify ideal meal timing and volume for her body. Pt has been eating on a schedule but often found she was overeating and eating when not hungry. Pt finds that she feels the best when she is just underfilled as this does not trigger her sensitive stomach. Pt plans to tackle her meal composition next using the cardiometabolic food pattern tool to identify if she is skewed in meal composition. Pt will report back in 3w with insights into food choices. f/u in 3w to continue nutrition education and monitoring. Electronically Signed by: Alina Hinds 05/01/22 17:11 Clinical Dietitian [address] [id number]
== END ==
PROVIDERS: PCP Family Medicine; Referring Provider Family Medicine; Visit Provider Family Medicine
DX: I10 Essential (primary) hypertension (principal); E78.5 Hyperlipidemia, unspecified; Z71.3 Dietary counseling and surveillance
CPT/HCPCS: 97803

== ENCOUNTER → 2022-05-13 12:53 | Outpatient (CLI) | payer OTHER, SELFPAY ==
[2022-01-18 16:40] VITALS: BMI 28.7
== END ==
PROVIDERS: PCP Family Medicine; Visit Provider Registered Nurse
DX: N39.0 Urinary tract infection, site not specified (principal)
CPT/HCPCS: 87077; 87086; 87186

== ENCOUNTER → 2022-07-03 09:33 | Outpatient (CLI) | payer OTHER, SELFPAY ==
[2022-01-18 16:40] VITALS: BMI 28.7
[2022-07-03 11:52] LABS: COVID19 -Nasal RAPID Negative (Negative)
== END ==
PROVIDERS: PCP Family Medicine; Visit Provider Surgery
DX: Z20.822 Contact with and (suspected) exposure to COVID-19 (principal); Z01.812 Encounter for preprocedural laboratory examination
CPT/HCPCS: 87635; C9803

== ENCOUNTER 2022-07-04 08:53 | Day surgery (SDC) | payer OTHER, SELFPAY ==
[2022-01-18 16:40] VITALS: BMI 28.7
[2022-07-04] MEDS: SODIUM CHLORIDE 0.9% 1,000 ML 150 ML IV (09:14)
[2022-07-04 09:15] VITALS: BP 110/76; PULSE 74; RESP 16; TEMP 36.3; O2SAT 98; BMI 29.5
--- NOTE | 2022-07-04 10:05 | PM.HP.1 ---
History of Present Illness History of Present Illness Date Patient Seen: 07/04/22 Time Patient Seen: 10:05 Chief complaint: COLONOSCOPY Narrative: The patient presents for colorectal screening. Most recent colonoscopy 2012 with benign polyps.. No personal or family history of colon cancer. She has chronic constipation which she attributes to propranolol otherwise no other recent changes in gastrointestinal health. Patient History Medical History Arthritis of right knee Carpal tunnel syndrome on both sides (~2019) Cervical somatic dysfunction Chicken pox (~1958) Chronic pain of left thumb Colon polyps Endometrial cancer (09/2016) Fractures (~2019) Hearing loss Hepatitis (~1960) Hypothyroidism (acquired) Knee pain Left buttock pain Lightheadedness Low back pain Lumbar region somatic dysfunction Measles (~1957) Multiple nevi Obstructive sleep apnea of adult (~1983) Osteoarthritis Pelvic somatic dysfunction Piriformis syndrome of right side Primary insomnia (~1983) Recurrent sinusitis Rubella (~1954) Sacral region somatic dysfunction Segmental and somatic dysfunction of abdomen and other regions Segmental and somatic dysfunction of upper extremity Situational anxiety Sleep apnea Snoring (~1983) Somatic dysfunction of lower extremity ST (skin tag) Stiff neck Thoracic region somatic dysfunction Vertigo Wears glasses Surgical History Anesthesia History of hysterectomy for cancer (09/2016) History of third molar tooth extraction Family & Social History Family History Mother Rheumatoid arthritis Father Cancer Arthritis Grandfather Stroke Grandmother Stroke Grandmother Cancer Social History: household members spouse lives independently Yes caregiver/support person No Tobacco & Substance use: Tobacco type cigarettes Smoking Status Former smoker alcohol intake current alcohol intake frequency holiday/special occasion Substance Use Type does not use Meds Home Medications and Allergies Home Medications Medication Instructions Recorded Confirmed Type Resmed Dreamstation CPAP #1 ea 05/05/21 01/18/22 History propranolol 10 mg tablet 10 mg PO BID PRN Anxiety, 01/30/22 07/04/22 Rx hypertension #60 tabs Allergies Allergy/AdvReac Type Severity Reaction Status Date / Time Androgenic Anabolic Steroid AdvReac Mild Insomnia Verified 07/04/22 08:49 cortisone AdvReac Mild insomnia Verified 07/04/22 08:49 Exam Vital Signs (past 8 hours): - 07/04/22 09:15 Temperature 97.3 F L Pulse Rate 74 Respiratory Rate 16 Blood Pressure 110/76 Pulse Oximetry 98 Oxygen Delivery Method Room Air Oxygen Delivery Method Room Air Narrative Exam Narrative: General adult woman alert oriented no acute distress Chest nonlabored respiration Extremities warm well perfused Assessment & Plan Assessment & Plan narrative: The patient requires colorectal screening and colonoscopy is recommended. Technical details were discussed. Risks, benefits, alternatives explained. Risks including but not limited to myocardial infarction, aspiration, bleeding, pain, missed lesion, incomplete examination, need for further radiographic studies, colonic perforation, and need for major abdominal surgery were discussed. All questions were answered to their satisfaction, and they are in agreement with this plan. Time Spent With Patient Critical Care time: I spent a total of [] minutes of critical care time on this patient's care today; this time is exclusive of procedural time.
[2022-07-04] MEDS: MIDAZOLAM 5 MG/5 ML VIAL IV (10:24)
[2022-07-04] MEDS: fentaNYL 100 MCG/2 ML INJ 125 MCG IV (10:27)
--- NOTE | 2022-07-04 10:47 | PM.OP.COLON ---
Operative Date/Time/Diagnoses Date of procedure: 07/04/22 Time of procedure: 10:47 Pre-op diagnosis: Personal history of colonic polyps Post-op diagnosis: same Procedure & Clinicians Study performed: Colonoscopy Same procedure as scheduled: Yes Indications: Personal history of colonic polyps Surgeon: Milo Del Valle Procedure Notes Procedure in detail: Medications: Conscious sedation using 5mg IV midazolam and 125mcg IV of fentanyl The history and physical was performed/updated and the patient is ASA class is 2. The procedure was discussed in detail with the patient. Potential risks complications including infection, bleeding, missed diagnosis, perforation, need for surgery, and were explained. Their questions were answered and informed consent was obtained. Patient was brought to the procedure room and placed standard monitoring equipment. The patient's vital signs were monitored continuously throughout the entire procedure. Prior to starting time-out was performed. The patient was placed in the left lateral recumbent position. Procedural sedation was administered. Examination began with a thorough inspection of the perianal area there was no evidence of fissures, fistulae, external hemorrhoids or cutaneous malignancy. The colonoscopy scope was then placed into the anal canal and was advanced to the cecum, which was identified by the ileocecal valve, the appendiceal orifice and the confluence of the taenia. The scope was then slowly withdrawn examining colon thoroughly in all directions, irrigating it of any residual stool. FINDINGS 1. No masses or polyps 2. Extremely tortuous colon 3. Internal hemorrhoids The patient tolerated the procedure well. They will be discharged once criteria are met. The prep was of good/excellent quality. The withdrawl time was 6 minutes. The sedation time was 28 minutes. Specimen(s): none sent Impression: Normal colonoscopy Post-procedure Recommendations: Colonoscopy in 10 years Disposition: same day surgery
[2022-07-04 10:52] VITALS: BP 110/74; PULSE 67; RESP 15; TEMP 36.3; O2SAT 99
[2022-07-04 10:57] VITALS: BP 119/78; PULSE 82; RESP 11; O2SAT 99
[2022-07-04 11:01] VITALS: BP 116/79; PULSE 78; RESP 19; TEMP 36.4; O2SAT 99
== END 2022-07-04 11:23 | disposition home or self-care (01) ==
PROVIDERS: PCP Family Medicine; Referring Provider Surgery; Visit Provider Surgery
PROC: 0DJD8ZZ Inspection of Lower Intestinal Tract, Via Natural or Artificial Opening Endoscopic (ICD-10-PCS; CPT 45378; principal; 2022-07-04 10:00)
DX: Z12.11 Encounter for screening for malignant neoplasm of colon (principal); Z86.010 Personal history of colon polyps; K64.8 Other hemorrhoids
CPT/HCPCS: G0105; 99152; 99153; J2250; J3010

== ENCOUNTER → 2022-07-05 14:51 | Outpatient (CLI) | payer OTHER, SELFPAY ==
[2022-01-18 16:40] VITALS: BMI 28.7
[2022-07-05 16:04] LABS: Magnesium 2.1 mg/dL (1.6-2.3)
[2022-07-05 16:34] LABS: Free T4, Direct Thyroxine 0.96 ng/dL (0.78-2.19); T4 Total Thyroxine 7.64 ug/dL (5.5-11.0)
[2022-07-05 16:47] LABS: Thyroid Stimulating Hormone 1.34 uIU/mL (0.47-4.68)
[2022-07-13 05:39] LABS: Normetanephrine Total 297 ug/24 hr (131-612); Urine, Metanephrine 36 ug/L (Undefined); Urine, Normetanephrine 99 ug/L (Undefined)
== END ==
PROVIDERS: PCP Family Medicine; Referring Provider Internal Medicine Cardiovascular Disease; Visit Provider Internal Medicine Cardiovascular Disease
DX: R03.0 Elevated blood-pressure reading, without diagnosis of hypertension (principal); R00.2 Palpitations
CPT/HCPCS: 36415; 82088; 83735; 83835; 84436; 84439; 84443

== ENCOUNTER → 2022-07-07 11:03 | Outpatient (CLI) | payer OTHER, SELFPAY ==
[2022-01-18 16:40] VITALS: BMI 28.7
--- NOTE | 2022-07-07 11:04 | DI.RAD.S_ITS ---
PROCEDURE: XR KNEE LT 3V INDICATIONS: left knee pain TECHNIQUE: 3 views of the knee were acquired. COMPARISON: [facility], YARELI, XR KNEE RT 1TO2V, 08/10/2020, 13:49. [facility], YARELI, KNEE 3V RIGHT, 06/22/2013, 15:40. FINDINGS: Bones: No fractures or dislocations. There is moderate medial compartment joint space narrowing indicating degenerative osteoarthritic change No suspicious bony lesions. Soft tissues: No joint effusion. No suspicious soft tissue calcifications. IMPRESSION: No trauma found, no effusion seen. [id number] degenerative osteoarthritis at the medial compartment, mild degenerative change at the lateral facet of the patellofemoral joint. Dictated by: Dalton Kidd M.D. on 07/07/2022 at 13:12 Approved by: Dalton Kidd M.D. on 07/07/2022 at 13:12
== END ==
PROVIDERS: PCP Family Medicine; Referring Provider Family Medicine; Visit Provider Family Medicine
DX: M25.562 Pain in left knee (principal); M17.12 Unilateral primary osteoarthritis, left knee
CPT/HCPCS: 73562

== ENCOUNTER → 2022-09-13 07:57 | Outpatient (CLI) | payer OTHER, SELFPAY ==
[2022-01-18 16:40] VITALS: BMI 28.7
== END ==
PROVIDERS: PCP Family Medicine; Visit Provider Registered Nurse
DX: R35.0 Frequency of micturition (principal)
CPT/HCPCS: 87086; 87147

== ENCOUNTER → 2022-09-16 07:59 | Outpatient (CLI) | payer OTHER, SELFPAY ==
[2022-01-18 16:40] VITALS: BMI 28.7
== END ==
PROVIDERS: PCP Family Medicine; Visit Provider Nurse Practitioner Family
DX: N39.0 Urinary tract infection, site not specified (principal)
CPT/HCPCS: 87086

== ENCOUNTER → 2023-03-14 09:54 | Outpatient (CLI) | payer OTHER, SELFPAY ==
[2022-12-18 12:01] VITALS: BMI 28.7
[2023-03-14 11:15] LABS: Add Manual Diff / Slide Review NO; Basophils Absolute Auto 0 /uL (0-100); Basophils Percent Auto 0.7 % (0-2); Eosinophils Absolute Auto 200 /uL (0-450); Eosinophils Percent Auto 3.2 % (2-4); Hematocrit 37.8 % (36-46); Hemoglobin 12.7 g/dL (12.0-16.0); Lymphocytes Absolute Auto 2100 /uL (1100-4500); Lymphocytes Percent Auto 42.7 % (25-40); Mean Corpuscular HGB Conc 33.7 % (30-36); Mean Corpuscular Volume 94.9 fL (80-100); Monocytes Absolute Auto 300 /uL (0-900); Monocytes Percent Auto 6.1 % (3-14); Neutrophils Absolute Auto 2300 /uL (1500-7000); Neutrophils Percent Auto 47.3 % (50-75); Platelet Count 252 X10^3/uL (150-400); Red Blood Cell Count 3.98 X10^6/uL (4.0-5.2); White Blood Cell Count 4.9 X10^3/uL (4.5-11.0)
[2023-03-14 11:51] LABS: Alanine Aminotransferase 25 IU/L (<35); Albumin 4.1 g/dL (3.5-5.0); Albumin Globulin Ratio 1.5 (1.0-2.8); Alkaline Phosphatase 73 U/L (38-126); Aspartate Aminotransferase 25 IU/L (14-36); BUN Creatinine Ratio 25.4 (6-22); Bilirubin Total 0.4 mg/dL (0.2-1.3); Blood Urea Nitrogen 16 mg/dL (7-17); Calcium 9.4 mg/dL (8.4-10.2); Carbon Dioxide 27 mmol/L (22-32); Chloride 103 mmol/L (98-107); Cholesterol 243 mg/dL (140-199); Estimated Glomerular Filt Rate > 60 mL/min (>60); Globulin 2.8 g/dL (1.7-4.1); Glucose 96 mg/dL (80-110); HDL Cholesterol 73 mg/dL (40-60); HEMOLYSIS < 15 (0-50); LDL Cholesterol Calculated 144 mg/dL (<100); Potassium 4.1 mmol/L (3.4-5.1); Sodium 137 mmol/L (137-145); Total Protein 6.9 g/dL (6.3-8.2); Triglycerides 131 mg/dL (35-150)
[2023-03-14 12:17] LABS: TSH w/ Reflex to FT4 1.44 uIU/mL (0.47-4.68)
== END ==
PROVIDERS: PCP Family Medicine; Referring Provider Family Medicine; Visit Provider Family Medicine
DX: E03.9 Hypothyroidism, unspecified (principal); E78.5 Hyperlipidemia, unspecified; I10 Essential (primary) hypertension
CPT/HCPCS: 80053; 80061; 84443; 85025

== ENCOUNTER → 2023-04-02 11:03 | Outpatient (CLI) | payer OTHER, SELFPAY ==
[2022-12-18 12:01] VITALS: BMI 28.7
--- NOTE | 2023-04-02 | DI.MG.S_ITS ---
BILATERAL DIGITAL SCREENING MAMMOGRAM 3D/2D WITH CAD: 04/02/2023 CLINICAL: Routine screening. Comparison is made to exams dated: 03/30/2022 mammogram, 12/15/2020 mammogram, and 12/17/2018 mammogram - [facility]. Both breasts are extremely dense, which lowers the sensitivity of mammography (category d />75% glandular tissue). Current study was also evaluated with a Computer Aided Detection (CAD) system. There are benign calcifications in both breasts. There are mole markers on both breasts. No significant masses, calcifications, or other findings are seen in either breast. There has been no significant interval change. IMPRESSION: BENIGN There is no mammographic evidence of malignancy. A 1 year screening mammogram is recommended. Based on the Tyrer Cuzick model (a risk assessment model) the patient's lifetime risk is 12.0% and her 10 year risk is 7.1%. According to the ACR, ACS, and NCCN guidelines, an annual breast MRI exam along with mammogram is recommended if the patient's lifetime risk is 20% or greater. This exam was interpreted at Station ID: [id number]. NOTE: For mammograms, a report in lay terms will be sent to the patient. Approximately 15% of breast malignancies will not be visualized mammographically. In the management of a palpable breast mass, a negative mammogram must not discourage biopsy of a clinically suspicious lesion. Electronically Signed By: Bon hernandez/ghanshyam:04/02/2023 12:25:45 letter sent: Normal Exam ACR BI-RADS Category 2: Benign Finding(s) 3342F
== END ==
PROVIDERS: PCP Family Medicine; Referring Provider Family Medicine; Visit Provider Family Medicine
DX: Z12.31 Encounter for screening mammogram for malignant neoplasm of breast (principal)
CPT/HCPCS: 77063; 77067

== ENCOUNTER → 2024-04-03 10:45 | Outpatient (CLI) | payer OTHER, SELFPAY ==
[2022-12-18 12:01] VITALS: BMI 28.7
--- NOTE | 2024-04-03 10:46 | DI.RAD.S_ITS ---
PROCEDURE: XR DEXA AXIAL SKELETON INDICATIONS: Screening exam COMPARISON: 11/17/2020. FINDINGS: Lumbar Spine: Bone mineral density 1.011 g/cm2, T score -0.3, previously 0.8. Left Hip: Bone mineral density is 0.843 g/cm2, T score -0.8, previously -0.2. Left Femoral Neck: Bone mineral density 0.709 g/cm2, T score -1.3, previously -0.2. Right Hip: Bone mineral density 0.890 g/cm2, T score -0.4, previously 0.5. Right Femoral Neck: Bone mineral density 0.776 g/cm2, T score -0.7, previously 0.6. Fracture Risk Calculation (when applicable): 10-year fracture risk of a major osteoporotic fracture 9.0% and of a hip fracture 1.1%. (T score greater or equal to -1.0 to: NORMAL) (T score from -1.1 to -2.4: OSTEOPENIA) (T score less than or equal to -2.5: OSTEOPOROSIS) IMPRESSION: Osteopenia. Follow-up guidelines as follows: Osteoporosis: Consider a repeat DEXA and Vertebral Fracture Assessment (VFA) exam in 2 years or sooner if medically necessary, to reassess this patient's status. Osteopenia: Consider a repeat DEXA in 2-3 years to reassess this patient's status, or if there is a new clinical indication. Normal: Consider a repeat DEXA in 5 years or sooner, or if there is a new clinical indication. All treatment decisions require clinical judgment and consideration of individual patient factors, including patient preferences, comorbidities, previous drug use, risk factors not captured in the FRAX model (e.g., frailty, falls, vitamin D deficiency, increased bone turnover, interval significant decline in bone density ) and possible under- or over-estimation of fracture risk by FRAX. In addition, the NOF Guide recommends that FDA-approved medical therapies be considered in postmenopausal women and men age >= 50 years with a: * Hip or vertebral (clinical or morphometric) fracture * T-score of <=-2.5 at the spine or hip * Ten-year fracture probability by FRAX of >= 3% for hip fracture or >=20% for major osteoporotic fracture. People with diagnosed cases of osteoporosis or at high risk for fracture should have regular bone mineral density tests. For patients eligible for Medicare, routine testing is allowed once every 2 years. The testing frequency can be increased to one year for patients who have rapidly progressing disease, those who are receiving or discontinuing medical therapy to restore bone mass, or have additional risk factors. Dictated by: Christian Coronado M.D. on 04/03/2024 at 16:34 Approved by: Christian Coronado M.D. on 04/03/2024 at 16:35
--- NOTE | 2024-04-03 10:46 | DI.MG.S_ITS ---
BILATERAL DIGITAL SCREENING MAMMOGRAM 3D/2D WITH CAD: 04/03/2024 CLINICAL: Routine screening. Comparison is made to exams dated: 04/02/2023 mammogram, 03/30/2022 mammogram, and 12/15/2020 mammogram - [facility]. Both breasts are heterogeneously dense, which may obscure small masses (category c / 51-75% glandular tissue). Current study was also evaluated with a Computer Aided Detection (CAD) system. No significant masses, calcifications, or other findings are seen in either breast. There has been no significant interval change. IMPRESSION: NEGATIVE There is no mammographic evidence of malignancy. A 1 year screening mammogram is recommended. Based on the Tyrer Cuzick model (a risk assessment model) the patient's lifetime risk is 7.6% and her 10 year risk is 4.8%. According to the ACR, ACS, and NCCN guidelines, an annual breast MRI exam along with mammogram is recommended if the patient's lifetime risk is 20% or greater. This exam was interpreted at Station ID: [id number]. NOTE: For mammograms, a report in lay terms will be sent to the patient. Approximately 15% of breast malignancies will not be visualized mammographically. In the management of a palpable breast mass, a negative mammogram must not discourage biopsy of a clinically suspicious lesion. Electronically Signed By: Maral Bullock M.D., Ph.D. orquidea/ghanshyam:04/04/2024 08:06:01 letter sent: Normal Exam ACR BI-RADS Category 1: Negative 3341F
== END ==
PROVIDERS: PCP Family Medicine; Referring Provider Family Medicine; Visit Provider Family Medicine
DX: Z12.31 Encounter for screening mammogram for malignant neoplasm of breast (principal); R92.333 Mammographic heterogeneous density, bilateral breasts; M85.852 Other specified disorders of bone density and structure, left thigh; N95.9 Unspecified menopausal and perimenopausal disorder
CPT/HCPCS: 77063; 77067; 77080

== ENCOUNTER 2024-07-22 12:20 | Emergency (ER) | payer OTHER, SELFPAY ==
[2022-12-18 12:01] VITALS: BMI 28.7
[2024-07-22] VITALS (11 sets, daily range): BP systolic 121–152; BP diastolic 67–75; PULSE 57–75; RESP 12–24; TEMP 37; O2SAT 94–99; BMI 29.5
--- NOTE | 2024-07-22 12:37 | DI.RAD.S_ITS ---
PROCEDURE: XR CHEST 1V INDICATIONS: chest pain TECHNIQUE: One view of the chest was acquired. COMPARISON: None. FINDINGS: Surgical changes and devices: None. Lungs and pleura: Lungs are clear. No pleural effusions or pneumothorax. Mediastinum: Mediastinal contours appear normal. Heart size is normal. Bones and chest wall: No suspicious bony lesions. Overlying soft tissues appear unremarkable. IMPRESSION: No acute pulmonary process. Dictated by: Maura Lopez M.D. on 07/22/2024 at 13:33 Approved by: Maura Lopez M.D. on 07/22/2024 at 13:33
--- NOTE | 2024-07-22 12:50 | EKG_ITS ---
[address] [address] Test Date: 2024-07-22 Pat Name: Dilcia Eugene Department: Room: Gender: Female Spa Assistant Manager: LUDA : 1955 Requested By: Order Number: [id number] Reading MD: Rahul Thompson MD Measurements Intervals Dexter Rate: 64 P: 60 CA: 164 QRS: 50 QRSD: 74 T: 23 QT: 408 QTc: 420 Interpretive Statements Normal sinus rhythm Electronically Signed On 07-22-2024 15:33:08 PST by Rahul Thompson MD
[2024-07-22 12:55] LABS: Add Manual Diff / Slide Review NO; Basophils Absolute Auto 0 /uL (0-100); Eosinophils Absolute Auto 100 /uL (0-450); Eosinophils Percent Auto 2.6 % (2-4); Hematocrit 38.6 % (36-46); Lymphocytes Absolute Auto 2000 /uL (1100-4500); Lymphocytes Percent Auto 42.7 % (25-40); Mean Corpuscular HGB Conc 33.7 % (30-36); Mean Corpuscular Hemoglobin 32.1 PG (26-34); Mean Corpuscular Volume 95.4 fL (80-100); Monocytes Absolute Auto 300 /uL (0-900); Monocytes Percent Auto 7.1 % (3-14); Neutrophils Absolute Auto 2100 /uL (1500-7000); Neutrophils Percent Auto 46.6 % (50-75); Platelet Count 261 X10^3/uL (150-400); Red Blood Cell Count 4.04 X10^6/uL (4.0-5.2); Red Cell Distribution Width 14.1 % (11.6-14.8); White Blood Cell Count 4.6 X10^3/uL (4.5-11.0)
[2024-07-22 13:03] LABS: INR 1.1 (0.9-1.3)
[2024-07-22 13:06] LABS: PTT Partial Thromboplastin Tim 36 SECONDS (25.1-36.5)
[2024-07-22 13:08] LABS: Alanine Aminotransferase 18 IU/L (<35); Albumin 4.3 g/dL (3.5-5.0); Albumin Globulin Ratio 1.7 (1.0-2.8); Alkaline Phosphatase 77 U/L (38-126); Aspartate Aminotransferase 23 IU/L (14-36); BUN Creatinine Ratio 26.5 (6-22); Bilirubin Total 0.5 mg/dL (0.2-1.3); Blood Urea Nitrogen 18 mg/dL (7-17); Calcium 9.2 mg/dL (8.4-10.2); Carbon Dioxide 28 mmol/L (22-32); Chloride 106 mmol/L (98-107); Creatine Kinase 52 U/L (30-135); Estimated Glomerular Filt Rate > 60 mL/min (>60); Globulin 2.6 g/dL (1.7-4.1); Glucose 94 mg/dL (80-110); HEMOLYSIS < 15 (0-50); Lipase 92 U/L (23-300); Magnesium 2.1 mg/dL (1.6-2.3); Potassium 3.8 mmol/L (3.4-5.1); Sodium 140 mmol/L (137-145); Total Protein 6.9 g/dL (6.3-8.2)
[2024-07-22 13:20] LABS: NT-proBNP (BNP-Adult 18+) 62 pg/mL (<125); Troponin I < 0.012 ng/mL (0.01-0.034)
--- NOTE | 2024-07-22 16:46 | ED.CHESTPAIN ---
HPI - Chest Pain General Chief Complaint: Chest Pain Stated Complaint: symptoms of GERD nothing helping Time Seen by Provider: 07/22/24 16:46 Source: patient Mode of arrival: Ambulatory History of Present Illness HPI narrative: 68-year-old woman who presents with chest discomfort. She describes a bandlike pain around her chest, and a sense that she can not quite get a deep breath, complains that she has a ?gas bubble that does not resolve with belching, she does have a history of reflux. She was initially seen in clinic today for symptoms and sent to the ER for further evaluation. She notes that she has been coughing more recently, she will frequently have episodes where food including liquids feels like it gets stuck in her esophagus and takes a moment to get through. She will sometimes wake up in the middle of the night with a tight sensation in the middle of her abdomen. She had an episode where she was sound asleep and woke up gasping for breath coughed for about an hour before that finally resolved. In the past she has tried Nexium and Protonix both did help her symptoms however caused significant insomnia and a sense she was ?buzzing inside? all night. She is more than willing to try again because the coughing choking sensation is quite uncomfortable. 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 She has not complaining of palpitations, exertional dyspnea. Related Data Home Medications Medication Instructions Recorded Confirmed Airsense 11 CPAP #1 ea 08/09/22 04/21/24 Previous Rx's Medication Instructions Recorded hydroxyzine HCl 25 mg tablet 25 - 50 mg (1 - 2 x 25 mg) PO 01/18/24 BEDTIME #30 tabs clobetasol 0.05 % topical ointment 1 applic topical DAILY #30 grams 03/21/24 pantoprazole 40 mg tablet,delayed 40 mg PO DAILY #30 tabs 07/22/24 release Allergies Allergy/AdvReac Type Severity Reaction Status Date / Time Opioids - Morphine Analogues AdvReac Intermediate Insomnia Verified 07/22/24 12:36 Androgenic Anabolic Steroid AdvReac Mild Insomnia Verified 07/22/24 12:36 cortisone AdvReac Mild insomnia Verified 07/22/24 12:36 Review of Systems Review of Systems Narrative: Pertinent positive and negative findings as per HPI Patient History Medical History Left carpal tunnel syndrome Fingertip eczema Lump on finger Hand pain, right Constipation Palpitations HTN (hypertension) Hypothyroidism (acquired) Lightheadedness Situational anxiety Left buttock pain Piriformis syndrome of right side Multiple nevi Segmental and somatic dysfunction of abdomen and other regions Endometrial cancer (09/2016) ST (skin tag) Arthritis of right knee Thoracic region somatic dysfunction Somatic dysfunction of lower extremity Chronic pain of left thumb Sacral region somatic dysfunction Pelvic somatic dysfunction Lumbar region somatic dysfunction Cervical somatic dysfunction Stiff neck Wears glasses Sleep apnea Fractures (~2019) Knee pain Rubella (~1954) Measles (~1957) Hepatitis (~1960) Chicken pox (~1958) Vertigo Recurrent sinusitis Hearing loss Colon polyps Segmental and somatic dysfunction of upper extremity Low back pain Carpal tunnel syndrome on both sides (~2019) Osteoarthritis Obstructive sleep apnea of adult (~1983) Primary insomnia (~1983) Snoring (~1983) Surgical History Anesthesia History of hysterectomy for cancer (09/2016) History of third molar tooth extraction Family History Mother Rheumatoid arthritis Father Cancer Arthritis Grandfather Stroke Grandmother Stroke Grandmother Cancer Social History marital status: details: to Tip, lives in [place] number of children: 3 household members: spouse lives independently: Yes caregiver/support person: No housing: house education level: college [employer] orthodox: [employer] Reformed Smoking Status: Former smoker quit status: quit date established alcohol intake: current substance use type: does not use during the past year weight has: remained stable well-balanced diet: daily or most days daily servings fruits/ve or more times/day caffeine: Yes eating out: rarely or never Type(s) of exercise: regular exercise frequency: daily duration: 15-30 minutes/day Smoking Status: Former smoker alcohol intake frequency: holidays/special occasions only Substance Use Type: does not use Exam Initial Vital Signs Initial Vital Signs: Vital Signs Temperature 98.6 F 07/22/24 12:31 Pulse Rate 64 07/22/24 12:31 Respiratory Rate 16 07/22/24 12:31 Blood Pressure 146/70 H 07/22/24 12:31 Pulse Oximetry 98 07/22/24 12:31 Oxygen Delivery Method Room Air 07/22/24 12:31 General: Healthy appearing, in no acute distress. Able to give a complete and coherent history. Well-nourished well-developed HEENT: Moist mucous membranes, normal sclera with reactive pupils, Respiratory: Lungs are clear to auscultation, no wheezing no rales no rhonchi. Full and symmetrical air movement Cardiac: Regular rate and rhythm no murmurs no bruits Abdomen: Soft, nontender, no masses appreciated, no flank pain Skin: Warm and dry, no rashes Neurologic: Grossly neurologically intact with no obvious asymmetries or abnormalities Extremities: No trauma, well perfused Psych: Cooperative, appropriate insight and affect Course Orders Ordered: ED Orders 07/22/24 12:37 XR chest 1V Stat 07/22/24 12:46 Complete Blood Count AUTO DIFF Stat Comprehensive Metabolic Panel Stat Lipase Stat Magnesium Stat NT-proBNP (BNP-Adult 18+) Stat PTT Partial Thromboplastin Mario Stat Prothrombin Time INR Stat Troponin & CK Cardiac Panel Stat 07/22/24 12:50 EKG-12 Lead Routine Discontinued Medications Aspirin (Aspirin 81 Mg Chew Tab) 324 mg PO NOW ONE Stop: 07/22/24 12:38 Vital Signs Vital signs: Vital Signs - 8 hr 07/22/24 12:31 07/22/24 14:01 07/22/24 14:02 Temperature 98.6 F Pulse Rate 64 69 Respiratory Rate 16 Blood Pressure 146/70 H 152/74 H Pulse Oximetry 98 Oxygen Delivery Method Room Air 07/22/24 14:02 07/22/24 14:30 07/22/24 14:30 Temperature Pulse Rate 69 60 Respiratory Rate 14 18 Blood Pressure 133/70 Pulse Oximetry 99 98 Oxygen Delivery Method Room Air Room Air MDM - Chest Pain Lab Data 07/22/24 12:46 07/22/24 12:46 Labs: Lab Results 07/22/24 Range/Units 12:46 WBC 4.6 (4.5-11.0) X10^3/uL RBC 4.04 (4.0-5.2) X10^6/uL Hgb 13.0 (12.0-16.0) g/dL Hct 38.6 (36-46) % MCV 95.4 (80-100) fL MCH 32.1 (26-34) PG MCHC 33.7 (30-36) % RDW 14.1 (11.6-14.8) % Plt Count 261 (150-400) X10^3/uL Neut % (Auto) 46.6 L (50-75) % Lymph % (Auto) 42.7 H (25-40) % Burt % (Auto) 7.1 (3-14) % Eos % (Auto) 2.6 (2-4) % Baso % (Auto) 1.0 (0-2) % Neut # (Auto) 2100 (8379-3163) /uL Lymph # (Auto) 2000 (6551-2844) /uL Burt # (Auto) 300 (0-900) /uL Eos # (Auto) 100 (0-450) /uL Baso # (Auto) 0 (0-100) /uL PT 12.0 (9.4-12.5) SECONDS INR 1.1 (0.9-1.3) APTT 36 (25.1-36.5) SECONDS Sodium 140 (137-145) mmol/L Potassium 3.8 (3.4-5.1) mmol/L Chloride 106 (98-107) mmol/L Carbon Dioxide 28 (22-32) mmol/L BUN 18 H (7-17) mg/dL Creatinine 0.68 (0.52-1.04) mg/dL Estimated GFR > 60 (>60) mL/min BUN/Creatinine Ratio 26.5 H (6-22) Glucose 94 (80-110) mg/dL Calcium 9.2 (8.4-10.2) mg/dL Magnesium 2.1 (1.6-2.3) mg/dL Total Bilirubin 0.5 (0.2-1.3) mg/dL AST 23 (14-36) IU/L ALT 18 (<35) IU/L Alkaline Phosphatase 77 (38-126) U/L Total Creatine Kinase 52 (30-135) U/L Troponin I < 0.012 (0.01-0.034) ng/mL NT-Pro-B Natriuret Pep 62 (<125) pg/mL Total Protein 6.9 (6.3-8.2) g/dL Albumin 4.3 (3.5-5.0) g/dL Globulin 2.6 (1.7-4.1) g/dL Albumin/Globulin Ratio 1.7 (1.0-2.8) Lipase 92 (23-300) U/L MDM Narrative Medical decision making narrative: CC: Dyspnea/chest pain Complicating co-morbidities: Reflux Data collected from: patient Differential considered: NSTEMI, asthma, gastric reflux causing cough, esophageal stricture, gastritis Exam documented above, pertinent findings include: Exam is entirely benign. Patient was drinking some apple juice as we were talking and had a sensation that it was stuck had to sit up and wait for a few moments for the apple juice to pass. Lab Test results independently reviewed as above. Pertinent findings: CBC is unremarkable Metabolic panel is unremarkable Troponin is undetectable BNP is not elevated Lipase is not elevated Independently reviewed EKG: EKG shows sinus rhythm at a rate of 64. No acute ischemic changes Imaging studies independently reviewed: Chest x-ray is unremarkable Discussion: 68-year-old woman with increasing abdominal pain, reflux, sensation of food and liquid getting stuck in her esophagus concerning for a developing esophageal stricture, increasing cough likely is secondary to reflux and an episode of severe coughing in the middle of the night with that was likely enough reflux that she had acid getting into her trachea. We discussed options for proton pump inhibitors. We will try pantoprazole to see if it also causes the buzzing? buzzing feeling. We will ask her to contact her primary care physician tomorrow to discuss referral to Gastroenterology and consideration of EGD. There is no suggestion of pulmonary or cardiac etiology is the source of her symptoms this evening and reassurance is given. There was no indication for additional blood work, imaging or hospitalization and she is discharged home Discharge Plan Departure Patient Disposition: Home Clinical Impression: Chest pain due to GERD, Esophageal stricture Activity Restrictions/Additional Instructions: Thank you for coming in today There was no sign of acute heart attack or heart attack like syndrome. You are not anemic to suggest acute bleeding from your stomach. Lab work is otherwise reassuring Given your symptoms I suspect that this is all related to heartburn/gastric reflux. I have given you a prescription for pantoprazole which is slightly different from the Nexium and Prilosec that you tried previously. Hopefully it will not cause the same buzzing sensation for you This prescription was electronically transmitted to [facility] In the meantime, I would recommend that you follow up with your primary care physician. I think the next appropriate step for you may be referral to a Gastroenterology and an endoscopy. With the way that food and liquids get stuck you may have a esophageal stricture that needs to be dilated. If you find that you are getting worse or develop any new symptoms, please feel free to return to the emergency department for further evaluation. Prescriptions: New pantoprazole 40 mg tablet,delayed release (DR/EC) 40 mg PO DAILY Qty: 30 0RF No Action clobetasol 0.05 % ointment 1 applic topical DAILY Qty: 30 1RF hydroxyzine HCl 25 mg tablet 25 - 50 mg PO BEDTIME Qty: 30 0RF (DME) Airsense 11 CPAP Qty: 1 Dose Instruction: As directed Patient Comments: Pressure: IPAP 8 EPAP 8 DME: [facility] Rx Instructions: As directed Referrals: Naye Deluna DO [Primary Care Provider] - Stand Alone Forms: Patient Portal/API/Survey
--- NOTE | 2024-07-22 17:54 | PC.NURSE ---
Pt here today for chest pressure, reports hx of GERD. Hx of similar symptoms. [place] her mother's [place], she is tearful today and feeling sad/stressed. Pt has good support system @ home, two daughters live locally. Discussed measures for stress relief and recommendation to f/u with SHARI Aguilar.
== END 2024-07-22 17:40 | disposition home or self-care (01) ==
PROVIDERS: Emergency Provider Emergency Medicine; PCP Family Medicine
DX: R07.89 Other chest pain (principal); K21.9 Gastro-esophageal reflux disease without esophagitis; K22.2 Esophageal obstruction
CPT/HCPCS: 36415; 71045; 80053; 82550; 83690; 83735; 83880; 84484; 85025; 85610; 85730; 93005; 93010; 99283; 99284

== ENCOUNTER → 2024-11-25 14:41 | Outpatient (CLI) | payer OTHER, SELFPAY ==
[2022-12-18 12:01] VITALS: BMI 28.7
[2024-11-25 15:44] LABS: Free T4, Direct Thyroxine 0.87 ng/dL (0.78-2.19)
[2024-11-25 15:58] LABS: Thyroid Stimulating Hormone 1.43 uIU/mL (0.47-4.68)
== END ==
LOC: LAB 14:42
PROVIDERS: PCP Family Medicine; Referring Provider Internal Medicine Endocrinology, Diabetes & Metabolism; Visit Provider Internal Medicine Endocrinology, Diabetes & Metabolism
DX: R76.8 Other specified abnormal immunological findings in serum (principal)
CPT/HCPCS: 36415; 84439; 84443

== ENCOUNTER → 2025-03-27 11:40 | Outpatient (CLI) | payer OTHER, SELFPAY ==
[2025-02-20 10:18] VITALS: BMI 28.7
== END ==
PROVIDERS: PCP Family Medicine; Visit Provider Nurse Practitioner Family
DX: R30.0 Dysuria (principal)
CPT/HCPCS: 87077; 87086; 87186

== ENCOUNTER → 2025-04-14 17:40 | Outpatient (CLI) | payer OTHER, SELFPAY ==
[2025-02-20 10:18] VITALS: BMI 28.7
--- NOTE | 2025-04-14 17:41 | DI.MG.S_ITS ---
MM screening mammo BI: 04/14/2025. BI-RADS: 1 CLINICAL: 69-year old female for bilateral screening mammogram. Tyrer-Cuzick lifetime risk of 5.1%. No personal or first-degree family history of breast cancer. PRIOR EXAMS 04/03/2024, 04/02/2023, 03/30/2022, 12/15/2020, MAMMOGRAPHY TECHNIQUE: 2D and 3D (tomosynthesis) digital mammographic views obtained, with additional images as needed for full coverage. Current study was also evaluated with a Computer Aided Detection (CAD) system. DENSITY C. The breasts are heterogeneously dense, which may obscure small masses. MAMMOGRAPHY FINDINGS Bilateral: No suspicious mass, asymmetry, microcalcification, or other abnormality seen. IMPRESSION: * No evidence of malignancy. RECOMMENDATIONS Bilateral * Annual screening mammography. OVERALL ASSESSMENT CATEGORY BI-RADS-1: Negative. The [employer] recommends annual screening mammography beginning at age 40 for women with average risk of breast cancer. ELECTRONICALLY SIGNED: Maral Bullock M.D. on 04/15/2025 at 12:14:33 AM PT Interpreting Station ID: [id number]
== END ==
LOC: MAMMO 17:40
PROVIDERS: PCP Family Medicine; Referring Provider Family Medicine; Visit Provider Family Medicine
DX: Z12.31 Encounter for screening mammogram for malignant neoplasm of breast (principal); R92.333 Mammographic heterogeneous density, bilateral breasts
CPT/HCPCS: 77063; 77067

== ENCOUNTER → 2025-04-17 15:40 | Outpatient (CLI) | payer OTHER, SELFPAY ==
[2025-02-20 10:18] VITALS: BMI 28.7
== END ==
LOC: LAB 15:42
PROVIDERS: PCP Family Medicine; Visit Provider Chiropractor
DX: N39.0 Urinary tract infection, site not specified (principal)
CPT/HCPCS: 87086

== ENCOUNTER → 2025-04-20 07:50 | Outpatient (CLI) | payer OTHER, SELFPAY ==
[2025-02-20 10:18] VITALS: BMI 28.7
== END ==
PROVIDERS: PCP Family Medicine; Visit Provider Nurse Practitioner Family
DX: R30.0 Dysuria (principal)
CPT/HCPCS: 87077; 87086; 87186

== ENCOUNTER → 2025-06-02 07:33 | Outpatient (CLI) | payer OTHER, SELFPAY ==
[2025-02-20 10:18] VITALS: BMI 28.7
== END ==
PROVIDERS: PCP Family Medicine; Visit Provider Registered Nurse
DX: R30.0 Dysuria (principal)
CPT/HCPCS: 87086

== ENCOUNTER → 2025-06-08 08:54 | Outpatient (CLI) | payer OTHER, SELFPAY ==
[2025-02-20 10:18] VITALS: BMI 28.7
== END ==
PROVIDERS: PCP Family Medicine; Visit Provider Chiropractor
DX: N39.0 Urinary tract infection, site not specified (principal)
CPT/HCPCS: 87077; 87086; 87186

== ENCOUNTER → 2025-06-26 08:24 | Outpatient (CLI) | payer OTHER, SELFPAY ==
[2025-02-20 10:18] VITALS: BMI 28.7
== END ==
LOC: LAB 08:25
PROVIDERS: PCP Family Medicine; Visit Provider Nurse Practitioner Family
DX: R30.0 Dysuria (principal)
CPT/HCPCS: 87086

== ENCOUNTER → 2025-08-20 11:52 | Outpatient (CLI) | payer OTHER, SELFPAY ==
[2025-02-20 10:18] VITALS: BMI 28.7
== END ==
PROVIDERS: PCP Family Medicine; Visit Provider Nurse Practitioner Family
DX: N39.0 Urinary tract infection, site not specified (principal)
CPT/HCPCS: 87077; 87086

== ENCOUNTER → 2025-09-07 18:40 | Outpatient (CLI) | payer OTHER, SELFPAY ==
[2025-02-20 10:18] VITALS: BMI 28.7
== END ==
PROVIDERS: PCP Family Medicine; Visit Provider Nurse Practitioner Family
DX: R39.89 Other symptoms and signs involving the genitourinary system (principal)
CPT/HCPCS: 87086